=== PATIENT | male | born 1965 | race Caucasian/White ===

== ENCOUNTER → 2020-07-29 | Outpatient (CLI) | payer SELFPAY | LOC: M LABSMTC 13:18 | PROVIDERS: ATTEND Pediatrics | DX: Z20.828 Contact with and (suspected) exposure to other viral communicable diseases (principal) ==

== ENCOUNTER 2021-03-03 02:36 | Inpatient (IN) | payer MEDICARE, MEDICAID ==
[~2021-03-03] VITALS: Ht 180.3 cm; Wt 57.1 kg
[2021-03-03] MEDS ORDERED: CEFD1CAP8 PO (02:51)
[2021-03-03] MEDS ORDERED: ALBU83IN PO (02:51)
[2021-03-03 03:36] LABS: VENOUS BASE EXCESS 0.9 (-2.0-2.0); VENOUS O2 SATURATION 83.1 % (60.0-80.0); VENOUS PARTIAL PRESSURE CO2 43.5 mmHg (38.0-50.0); VENOUS PARTIAL PRESSURE O2 46.7 mmHg (30.0-50.0); VENOUS PH 7.395 UNITS (7.330-7.430); VENOUS TOTAL CO2 27.4 MEQ/L (24.0-28.0)
[2021-03-03 03:38] LABS: HEMATOCRIT 33.2 % (42.0-52.0); MEAN CORPUSCULAR HEMOGLOBIN 29.3 pg (27.0-33.0); MEAN CORPUSCULAR HGB CONC 33.1 g/dl (32.0-36.5); MEAN CORPUSCULAR VOLUME 88.5 fl (80.0-96.0); PLATELET COUNT, AUTOMATED 282 10^3/uL (150-450); RED BLOOD COUNT 3.75 10^6/uL (4.30-6.10); WHITE BLOOD COUNT 23.3 10^3/uL (4.0-10.0)
[2021-03-03 03:57] LABS: DOHLE BODIES 1+; LYMPHOCYTES 3 % (16-44); METAMYELOCYTES 2 % (0-0); MONOCYTES 1 % (0-5); NEUTROPHILS 87 % (28-66); PLATELET CLUMPS SMALL AMT; PLATELET ESTIMATE NORMAL (NORMAL)
[2021-03-03 04:02] LABS: ALBUMIN 1.1 GM/DL (3.2-5.2); ALT/SGPT 7 U/L (12-78); BILIRUBIN,DIRECT 0.3 MG/DL (0.0-0.2); BILIRUBIN,TOTAL 0.5 MG/DL (0.2-1.0); BLOOD UREA NITROGEN 28 MG/DL (7-18); CALCIUM LEVEL 7.3 MG/DL (8.5-10.1); CARBON DIOXIDE LEVEL 25 MEQ/L (21-32); CHLORIDE LEVEL 103 MEQ/L (98-107); CK-MB VALUE MASS 2.8 NG/ML (<3.6); CPK CREATINE PHOSPHOKINASE 91 U/L (39-308); GLOMERULAR FILTRATION RATE > 60.0 (>56); GLUCOSE, FASTING 113 MG/DL (70-100); MB/CK RELATIVE INDEX 3.08 (< OR =4); NT-PRO BNP 895 PG/ML (<125); POTASSIUM SERUM 3.7 MEQ/L (3.5-5.1); SODIUM LEVEL 137 MEQ/L (136-145); TOTAL PROTEIN 5.8 GM/DL (6.4-8.2); TROPONIN I < 0.02 NG/ML (< 0.10)
[2021-03-03] MEDS: COMBIVENT RESPIMAT 100-20MCG INHALER 4GM INH SCH ×3 (04:14→04:59)
[2021-03-03] MEDS ORDERED: ISOVUE-370 76% 100ML VIAL As Ordered ONE (04:19)
--- NOTE | 2021-03-03 05:12 | REPVR ---
PROCEDURE INFORMATION: Exam: XR Chest Exam date and time: 03/03/2021 4:15 AM Age: 55 years old Clinical indication: Cough and dyspnea; Additional info: Dyspnea/cough TECHNIQUE: Imaging protocol: XR of the chest. Views: 1 view. COMPARISON: No relevant prior studies available. FINDINGS: Lungs: The lungs are hyperexpanded. There is a large masslike density occupying the upper half of the right lung field measuring at least 16.0 x 11.2 cm with internal lucencies. There is extensive infiltrate in the inferior half of the right lung field. The left lung is clear. Pleural spaces: Unremarkable. No pleural effusion. No pneumothorax. Heart/Mediastinum: Unremarkable. No cardiomegaly. Bones/joints: Unremarkable. IMPRESSION: 1. Large right upper field masslike density with internal lucencies which could represent necrosis or aerated lung tissue in addition to extensive infiltrates in the inferior half of the right lung field. Findings could be secondary to large lung mass with lymphangitic spread of tumor or super infection. Comparison to old studies is needed. If clinically indicated CT of the chest may be obtained for further evaluation. 2. Right-sided chest port with its tip in the distal SVC. Electronically signed by: Asher Cook On 03/03/2021 05:12:01 AM
--- NOTE | 2021-03-03 05:47 | REPVR ---
PROCEDURE INFORMATION: Exam: CTA Chest With Contrast Exam date and time: 03/03/2021 5:11 AM Age: 55 years old Clinical indication: Shortness of breath; Additional info: SOB TECHNIQUE: Imaging protocol: Computed tomographic angiography of the chest with contrast. 3D rendering (Not supervised by radiologist): MIP and/or 3D reconstructed images were created by the technologist. Radiation optimization: All CT scans at this facility use at least one of these dose optimization techniques: automated exposure control; mA and/or kV adjustment per patient size (includes targeted exams where dose is matched to clinical indication); or iterative reconstruction. Contrast material: ISOVUE 370; Contrast volume: 75 ml; Contrast route: INTRAVENOUS (IV); COMPARISON: CR PORTABLE CHEST X-RAY 03/03/2021 4:02 AM FINDINGS: Tubes, catheters and devices: Right-sided chest port seen with its tip at the cavoatrial junction. Pulmonary arteries: Normal. No pulmonary emboli. Aorta: The thoracic aorta is normal in caliber with no evidence of dissection. Thyroid: The thyroid gland is heterogeneous with no definite focal lesion. Lungs: There is severe left lung emphysematous lung changes. There is left upper lobe scar like mass measuring 3.8 x 2.5 centimetres best seen on coronal image 49 series 403. Two smaller scar like densities seen in the medial left lower lung zone 1 measuring 1.3 x 0.9 cm in the other 1.0 x 0.3 cm on coronal images 14 and 16. There is a large poorly defined consolidation/mass occupying the entire right upper lung field measuring at least 16.3 x 13.3 x 17.4 centimetres with multiple large lucencies with air-fluid level which could represent tissue necrosis or intraparenchymal abscesses with the possibility of fistulous communication to the bronchial tree. Extensive consolidation and infiltrate with coarse irregular septal thickening and poorly defined lung parenchyma could be secondary to infectious infiltrate or lymphangitic spread of tumor. Some aerated lung is seen in the right middle lobe where few scattered irregular nodules are seen. Pleural spaces: Unremarkable. No pneumothorax. No pleural effusion. Heart: There is a small to moderate pericardial effusion along the inferior aspect of the heart measuring up to 1.2 cm in thickness. Lymph nodes: There are multiple prominent lymph nodes in the AP window, pretracheal and precarinal , infra carinal and right hilar region. Gallbladder and bile ducts: The patient is status post cholecystectomy. Bones/joints: Unremarkable. No acute fracture. Soft tissues: Unremarkable. IMPRESSION: 1. No CT evidence of pulmonary embolism or right heart strain. 2. Extensive right lung disease as described above most likely representing a large poorly defined mass occupying the upper half of the right lung field with internal necrosis and or abscesses with the possibilities of fistulous communication to the bronchial tree in addition to extensive consolidations infiltrate and irregular septal thickening in the inferior half of the right lung field which could represent superimposed infection with consolidations and or lymphangitic spread of tumor. 3. Mediastinal adenopathy. 4. Small to moderate pericardial effusion. 5. Right-sided chest port with its tip at the cavoatrial junction. Electronically signed by: Asher Cook On 03/03/2021 05:47:09 AM
[2021-03-03] MEDS ORDERED: PIPERACILLIN/TAZOBACTAM SOD 3.375 GM in D5W MINI-BAG PLUS 50 ML IV ONE (06:20)
[2021-03-03] MEDS ORDERED: NS 1,000 ML IV ONE (06:30)
[2021-03-03] MEDS ORDERED: MOM 30ML SUSPENSION UDC PO PRN (09:00)
[2021-03-03] MEDS ORDERED: MAALOX 30 ML SUSP *UDC PO PRN (09:00)
[2021-03-03] MEDS ORDERED: VANCOMYCIN HCL 1,000 MG in IV FLUID PLACE HOLDER 1 EA IV SCH (11:45)
[2021-03-03 11:54] VITALS: BP 111/67
[2021-03-03] MEDS: FUROSEMIDE 40MG/4ML VIAL (J1940) IV SCH ×2 (12:01→17:13)
[2021-03-03] MEDS: ENOXAPARIN 40MG/0.4ML SYRINGE (J1650 PER 10MG) SC SCH (12:02)
[2021-03-03] MEDS ORDERED: SLF 3 ML SYR IV PRN (12:35)
[2021-03-03] MEDS ORDERED: PIPERACILLIN/TAZOBACTAM SOD 4.5 GM in D5W MINI-BAG PLUS 50 ML IV SCH (13:00)
[2021-03-03] MEDS: SLF 3 ML SYR IV SCH ×2 (14:20→21:20)
[2021-03-03] MEDS: VANCOMYCIN HCL 750 MG, VIAL MATE ADAPTER 1 EACH in NS 250 ML IV SCH (14:20)
[2021-03-03] MEDS ORDERED: VANCOMYCIN HCL 500 MG in D5W MINI-BAG PLUS 100 ML IV ONE (15:00)
[2021-03-03] MEDS: IPRATROPIUM 0.5MG/ALBUTEROL 2.5MG INH SOL UD 3ML (DUONEB) NEB SCH ×2 (15:18→21:13)
[2021-03-03 16:00] VITALS: BP 111/60
[2021-03-03] MEDS: PIPERACILLIN/TAZOBACTAM SOD 4.5 GM in D5W MINI-BAG PLUS 50 ML IV SCH ×2 (17:14→21:21)
--- NOTE | 2021-03-03 19:48 | ECHO ---
ECHOCARDIOGRAM DATE OF PROCEDURE: 03/03/2021 Age: 55 Gender: Male Height: 180 cm Weight: 54 kg REFERRING PHYSICIAN: Dr. Nagy INDICATION: Dyspnea MEASUREMENTS: IVS 1.1 cm LV 3.8 cm LVPW 0.9 cm LA 2.7 cm Aorta 3.3 cm IVC 2.2 cm DOPPLER MEASUREMENT Mitral E wave velocity 85 Mitral A wave 75 FINDINGS: This study is of acceptable technical quality even though neither apical, parasternal, nor subcostal views were completely excellent. Underlying sinus rhythm. Left ventricle is normal size and has normal systolic function, I estimate overall EF in the neighborhood of 65% to 70%. Right ventricle is also of normal size and systolic function. Both atria appear normal. Aortic, mitral, tricuspid, and pulmonic valves were all reasonably well seen and appear normal. Small noncompressive pericardial effusion is noted. Inferior vena cava is dilated, but it does collapse with inspiration indicative of mildly elevated central venous pressure. Aortic root is normal. Aortic arch was not seen. Abdominal aorta grossly appears normal. Doppler interrogation of the aortic valve reveals no significant stenosis or insufficiency. The same applies to mitral and pulmonic valves. Mild tricuspid insufficiency is seen. Calculated pulmonary artery pressure is in the 40s corresponding to moderate pulmonary hypertension. Evaluation of diastolic function is inconclusive because tissue Doppler imaging of the mitral annulus was not performed, but mitral inflow pattern has normal pattern. CONCLUSIONS: 1. Study is of fair technical quality, underlying sinus rhythm. 2. Normal LV size with preserved LV systolic function and probably also normal diastolic function. 3. No significant valvular disease. 4. Mildly elevated central venous pressure and likely moderate pulmonary hypertension. 5. Small noncompressive pericardial effusion.
[2021-03-03 20:24] VITALS: BP 100/63
--- NOTE | 2021-03-03 21:01 | HPEPDOC ---
[facility] Medical History & Physical Date of Admission Mar 03, 2021 Date of Service: Mar 03, 2021 Attending Physician: MARTI MCPHERSON MD History and Physical CHIEF COMPLAINT: Cough and right-sided back pain HISTORY OF PRESENT ILLNESS: Patient is a 55-year-old male with past medical history of lung cancer, and COPD who presents with shortness of breath, cough and right back pain. The patient is a poor historian and unintelligible speech at times. He is able to express that he has had cough for the past week without any productive sputum. He states that he has been trying to cough something up but cannot. He reports that his right-sided back pain is skilled at a 5 out of 10. He describes it as a sore aching pain that is alleviated by a medication of 500 mg. The patient states that he was seen in [place], [place] for his lung cancer, where states that he was told that his lung cancer was in remission. He reports that he has had both radiation and chemotherapy for this. He had a report from his chemotherapy therapy even though he does not receive at this time. Chest radiograph and CT angiogram were done in the ED, which both showed significant signs of mass-like densities. CT angiogram did not show signs of pulmonary embolism, however, he did show significant emphysema of the long and the possibility of intraparenchymal abscesses with the possibility of fistulous communication to the bronchial tree. PAST MEDICAL HISTORY: COPD History of lung cancer. History of bladder cancer. PSH: none SOCIAL HISTORY: Patient lives alone at home. He states that his neighbor checks on him often. He reports that he stopped smoking 2 weeks ago. Reports smoking history of 2 PPD of 40 years, denies alcohol. Denies illicit drug use. He has a patch while at home and that is being taken care of by his neighbor. The patient reports that he would like his good friend, Jing Fernandez to be contacted for any healthcare decision-making at [phone], although it is unclear whether she is a legal healthcare proxy. FAMILY HISTORY: ALLERGIES: Please see below. REVIEW OF SYSTEMS: CONSTITUTIONAL: Denies fevers, chills, night sweats HEENT:. Denies vision changes, denies rhinorrhea. Reports cough as reported in HPI. CARDIOVASCULAR:. Denies heart palpitations, chest pains, chest pressure. RESPIRATORY: Reports shortness of breath. GASTROINTESTINAL: Denies nausea, vomiting, diarrhea, constipation. GENITOURINARY:. Denies dysuria, reports that he had not urinated for the past couple days and urinated a lot today. SKIN: Denies any new skin rashes or lesions. NEUROLOGICAL: Denies any numbness or paresthesias. PSYCHIATRIC: Denies emotional lability, and mood disorders at this time ENDOCRINE: Denies polydipsia, polyuria, polyphagia. HEMATOLOGIC/LYMPHATIC: Denies easily bleeding or bruising. HOME MEDICATIONS: Please see below. PHYSICAL EXAMINATION: VITAL SIGNS: Temperature 98.2, pulse 89, respiratory rate 22, blood pressure 111/60, pulse oximetry 94% on 3L NC. GENERAL APPEARANCE: Patient appears cachectic, with severe kyphosis HEENT: No conjunctival or lids normal. CARDIOVASCULAR: Distant heart sounds due to body habitus. LUNGS: Poor pulmonary air movement. Dullness to percussion of the right side. ABDOMEN: Soft, nontender, nondistended, bowel sounds positive. EXTREMITIES: +2 bilateral pitting edema. NEUROLOGICAL: Muscular tone is good, considering cachectic appearance. PSYCHIATRIC: Affect full and open. LABORATORY DATA: See below. IMAGING: CXR: 03/03/2021 1. Large right upper field masslike density with internal lucencies which could represent necrosis or aerated lung tissue in addition to extensive infiltrates in the inferior half of the right lung field. Findings could be secondary to large lung mass with lymphangitic spread of tumor or super infection. Comparison to old studies is needed. If clinically indicated CT of the chest may be obtained for further evaluation. 2. Right-sided chest port with its tip in the distal SVC. CT angiogram: 03/03/[address] evidence of pulmonary embolism or right heart strain. 2. Extensive right lung disease as described above most likely representing a large poorly defined mass occupying the upper half of the right lung field with internal necrosis and or abscesses with the possibilities of fistulous communication to the bronchial tree in addition to extensive consolidations infiltrate and irregular septal thickening in the inferior half of the right lung field which could represent superimposed infection with consolidations and or lymphangitic spread of tumor. 3. Mediastinal adenopathy. 4. Small to moderate pericardial effusion. 5. Right-sided chest port with its tip at the cavoatrial junction. MICROBIOLOGY: Please see below. ASSESSMENT: Patient is a 85-year-old male with a past medical history of bladder cancer and lung cancer who presents with shortness of breath, cough, right-sided neck pain. He has significant abnormalities present on CT concerning for infection at this time. PLAN: #Dyspnea, multifactorial. CHF. Patient does not have echocardiogram on file. He likely is in decompensated heart failure. Echocardiogram ordered. Lasix 40 mg twice a day ordered. Monitor I's and O's. Monitor daily weights COPD exacerbation/pneumonia. Start Zosyn and vancomycin. Pro-calcitonin and lactic acid ordered. Leukocytosis with metamyelocytosis present. Administer DuoNeb treatment. Encourage incentive spirometry and Acapella. O2 therapy should be targeted to oxygen saturation to be kept above 90%. Rule out PE. CT angiogram done without any evidence of pulmonary embolism. History of lung cancer. #Underweight, BMI of 18.1 kg/m patient has been placed on COPD diet. Nutrition has been consulted Complicates care. DVT prophylaxis: Lovenox 40 mg once a day. Attending Attestation: I performed a history and physical examination of the patient. I have discussed in detail with the resident the findings and plan of treatment as documented by the resident. I agree with their findings and treatment plan. Patient does have a history of extensive lung cancer, treated at [facility], stage III possibly stage IV. Further information is pending to guide treatment plan. Prognosis is guarded. I will continue to follow the patient during this hospital stay. Vital Signs Vital Signs Date Time Temp Pulse Resp B/P (MAP) Pulse Ox O2 Delivery O2 Flow Rate FiO2 03/03/21 16:00 98.7 89 22 111/60 (77) 94 Nasal Cannula 3.0 Laboratory Data Labs 24H Laboratory Tests 2 03/03/21 03:02: Neutrophils (%) (Auto) , Nucleated Red Blood Cells % (auto) 0.0, Neutrophils 87H, Band Neutrophils 7, Lymphocytes (Manual) 3L, Monocytes (Manual) 1, Metamyelocytes 2H, Dohle Bodies 1+, Platelet Estimate NORMAL, Clumped Platelets SMALL AMT, Blood Gas Bicarbonate Standard 25.0, Venous Blood pH 7.395, Venous Blood Partial Pressure CO2 43.5, Venous Blood Partial Pressure O2 46.7, Venous Blood Total Carbon Dioxide 27.4, Venous Blood HCO3 26.0, Venous Blood Oxygen Saturation 83.1H, Venous Blood Base Excess 0.9, Anion Gap 9, Glomerular Filtration Rate > 60.0, Calcium Level 7.3L, Total Bilirubin 0.5, Direct Bilirubin 0.3H, Aspartate Amino Transf (AST/SGOT) 17, Alanine Aminotransferase (ALT/SGPT) 7L, Alkaline Phosphatase 75, Total Creatine Kinase 91, Creatine Kinase MB 2.8, Creatine Kinase MB Relative Index 3.08, Troponin I < 0.02, SJ-Gic-K-Type Natriuretic Peptide 895H, Total Protein 5.8L, Albumin 1.1L, Albumin/Globulin Ratio 0.2 03/03/21 04:55: POC pH (Misc Panel) 7.452H, POC Base Excess (Misc Panel) 1.0, POC Saturated Percent O2 (Misc) 96, POC pO2 (Misc Panel) 77.0L, POC pCO2 (Misc Panel) 35.6, POC HCO3 (Misc Panel) 24.8, POC Total CO2 (Misc Panel) 26.0 03/03/21 10:48: Lactic Acid Level 3.6*H, Procalcitonin 14.93 03/03/21 12:07: Methicillin-Resist S.aureus DNA PCR DETECTEDA 03/03/21 12:26: Urine Color YELLOW, Urine Appearance HAZY, Urine pH 5.0, Urine Specific [place] 1.034, Urine Protein 1+H, Urine Glucose (UA) NEGATIVE, Urine Ketones NEGATIVE, Urine Blood 1+H, Urine Nitrite NEGATIVE, Urine Bilirubin NEGATIVE, Urine Urobilinogen 2.0H, Urine Leukocyte Esterase NEGATIVE, Urine WBC (Auto) 3, Urine RBC (Auto) 4H, Urine Hyaline Casts (Auto) 0, Urine Bacteria (Auto) NEGATIVE, Urine Squamous Epithelial Cells 2, Urine Mucus (Auto) SMALL, Urine Sperm (Auto) 03/03/21 15:15: Lactic Acid Followup at 4 Hours 2.9*H CBC/BMP Laboratory Tests 03/03/21 03:02 Microbiology Microbiology 03/03/21 Gram Stain, Received Pending 03/03/21 Sputum Culture, Received Pending 03/03/21 Blood Culture, Received Pending 03/03/21 Blood Culture, Received Pending 03/03/21 Respiratory Virus Panel (PCR) (TED) - Final, Complete Home Medications Scheduled Cefdinir (Cefdinir) 300 Mg Capsule, 300 MG PO BID Scheduled PRN Albuterol Sulf (Albuterol Sulfate) 2.5 Mg/3 Ml Vial.neb, 1 VIAL PO Q4H PRN for SHORTNESS OF BREATH Allergies Coded Allergies: acetaminophen (Verified Adverse Reaction, Intermediate, GAS CHEST PAIN, 03/03/21) codeine (Verified Adverse Reaction, Intermediate, GAS CHEST PAIN, 03/03/21) A-FIB/CHADSVASC A-FIB History Current/History of A-Fib/PAF?: No Huseyin Nagy DO Mar 03, 2021 21:01 MARTI MCPHERSON MD Mar 04, 2021 06:50
[2021-03-04] VITALS (8 sets, daily range): BP systolic 92–128; BP diastolic 50–67
[2021-03-04] MEDS: IPRATROPIUM 0.5MG/ALBUTEROL 2.5MG INH SOL UD 3ML (DUONEB) NEB SCH ×7 (00:42→23:59)
[2021-03-04] MEDS: VANCOMYCIN HCL 750 MG, VIAL MATE ADAPTER 1 EACH in NS 250 ML IV SCH (02:23)
[2021-03-04] MEDS: SLF 3 ML SYR IV SCH ×3 (03:58→21:08)
[2021-03-04] MEDS: PIPERACILLIN/TAZOBACTAM SOD 4.5 GM in D5W MINI-BAG PLUS 50 ML IV SCH ×4 (03:58→21:08)
--- NOTE | 2021-03-04 05:14 | ECGEPIP ---
[facility] - ED Test Date: 2021-03-03 Pat Name: ABEBE DE JESUS Department: Room: - Gender: Male Finance Executive: SOBEIDA : 1965 Requested By: IRAIDA Marquez Order Number: [id number] Reading MD: Gualberto Zapien Measurements Intervals [place]ley Rate: 90 P: 82 LA: 132 QRS: 57 QRSD: 92 T: 78 QT: 372 QTc: 455 Interpretive Statements SINUS ARRHYTHMIA Baseline artifact Comparison tracing not on file Electronically Signed on 03-04-2021 5:14:23 EDT by Gualberto Zapien
[2021-03-04 05:51] LABS: HEMATOCRIT 30.4 % (42.0-52.0); HEMOGLOBIN 10.2 g/dl (13.5-17.5); MEAN CORPUSCULAR HEMOGLOBIN 29.9 pg (27.0-33.0); MEAN CORPUSCULAR HGB CONC 33.6 g/dl (32.0-36.5); MEAN CORPUSCULAR VOLUME 89.1 fl (80.0-96.0); PLATELET COUNT, AUTOMATED 225 10^3/uL (150-450); RED BLOOD COUNT 3.41 10^6/uL (4.30-6.10)
[2021-03-04 06:23] LABS: ALT/SGPT 10 U/L (12-78); BILIRUBIN,TOTAL 0.3 MG/DL (0.2-1.0); BLOOD UREA NITROGEN 33 MG/DL (7-18); CALCIUM LEVEL 7.8 MG/DL (8.5-10.1); CARBON DIOXIDE LEVEL 32 MEQ/L (21-32); CHLORIDE LEVEL 103 MEQ/L (98-107); CREATININE FOR GFR 0.61 MG/DL (0.70-1.30); GLOMERULAR FILTRATION RATE > 60.0 (>56); GLUCOSE, FASTING 99 MG/DL (70-100); POTASSIUM SERUM 3.7 MEQ/L (3.5-5.1); SODIUM LEVEL 139 MEQ/L (136-145); TOTAL PROTEIN 5.3 GM/DL (6.4-8.2)
[2021-03-04 06:25] LABS: MONOCYTES 1 % (0-5); NEUTROPHILS 92 % (28-66); PLATELET ESTIMATE NORMAL (NORMAL)
[2021-03-04 06:27] LABS: DOHLE BODIES 1+
[2021-03-04] MEDS: FUROSEMIDE 40MG/4ML VIAL (J1940) IV SCH ×2 (09:10→17:34)
[2021-03-04] MEDS: ENOXAPARIN 40MG/0.4ML SYRINGE (J1650 PER 10MG) SC SCH (09:11)
--- NOTE | 2021-03-04 14:39 | IPNPDOC ---
Date Seen The patient was seen on 03/04/21. Progress Note SUBJECTIVE: Patient is on hospital day 2. Patient and nursing staff report no overnight events. Patient denies fevers, chills, night sweats overnight. Patient reports that although he has decreased appetite. He was able to tolerate his breakfast okay. Patient reports that he had a few spoons of cereal, orange juice, and about 75% of his muffin. He reports that he is able to cough up a light-brown colored sputum today. He also states that he feels better today. Nursing staff reports that he has been feeling quite somnolent and he continues to do so today. He takes frequent naps. OBJECTIVE PHYSICAL EXAMINATION: VITAL SIGNS: Please see below. GENERAL: Patient is sitting upright without back support in his bed with his legs off the edge of the bed. HEENT: No conjunctival erythema, no scleral icterus, lids normal. Patient wears eyeglasses. CARDIOVASCULAR: Distant heart sounds due to body habitus, normal S1, S2. RESPIRATORY: Moderate diffuse rhonchi appreciated, patient continues to have a cough and is moving considerably more air than yesterday. ABDOMINAL:, Soft, nontender, nondistended, bowel sounds present. EXTREMITIES: +1 pitting edema from feet to the patella bilaterally, decreased from yesterday. NEUROLOGICAL: Good tone, patient able to sit upright for cachectic body habitus. PSYCHOLOGICAL: Alert and oriented 3, cooperative on examination. LABORATORY DATA, IMAGING STUDIES, MICROBIOLOGY: Please see below. Echocardiogram: 03/03/2021 1. Study is of fair technical quality, underlying sinus rhythm. 2. Normal LV size with preserved LV systolic function and probably also normal diastolic function. 3. No significant valvular disease. 4. Mildly elevated central venous pressure and likely moderate pulmonary hypertension. 5. Small noncompressive pericardial effusion. ASSESSMENT AND PLAN: This is a 55-year-old male with past medical history of lung carcinoma and COPD who presented to the hospital secondary to cough, and right-sided back pain. #Dyspnea, multifactorial. CHF. Echocardiogram done today showed moderate pulmonary hypertension. Ejection fraction was 65-70%. Therefore, the bilateral lower leg edema is likely secondary to pulmonary hypertension resulting from increased intrathoracic pressure. Continue Lasix 40 mg twice a day. Monitor I's and O's. Monitor daily weights COPD exacerbation/pneumonia. Continue Zosyn and vancomycin. Patient's Procalcitonin yesterday was 14.93. Patient's lactic acid decreased from 3.6 and is down to 2.8 today. Repeat Procalcitonin has been ordered. Atypical pneumonia. Tests have been ordered for: Chlamydia, Legionella, and mycoplasma. Leukocytosis, continues to increase. And with metamyelocytosis present. Continued to administer DuoNeb treatment. Encourage incentive spirometry and Acapella. O2 therapy should be targeted to oxygen saturation to be kept above 90%. Rule out PE. CT angiogram done without any evidence of pulmonary embolism. History of lung cancer. #Pericardial effusion. Pericardial effusion is noncompressive and small at this time. No intervention at this time as this effusion is likely secondary to patient's history of lung cancer. #Underweight, BMI of 18.1 kg/m Complicates care. Likely causing patient's fatigue, although patient has multiple other comorbidities as listed above. patient has been placed on COPD diet. Nutrition has been consulted. Ensure has been ordered to incorporate into patient's diet. DVT prophylaxis ordered: Lovenox 40 mg daily DISPOSITION: Discharge not considered since pt is possibly on the route to sepsis without intravenous antibiotics. VS, I&O, 24H, [facility] Vital Signs/I&O Vital Signs Date Time Temp Pulse Resp B/P (MAP) Pulse Ox O2 Delivery O2 Flow Rate FiO2 03/04/21 12:00 100.4 98 18 92/54 (67) 93 Room Air 03/04/21 08:00 3.0 I&O- Last 24 Hours up to 6 AM 03/04/21 06:00 Intake Total 2600 ml Output Total 1875 ml Balance 725 ml Laboratory Data 24H LABS Laboratory Tests 2 03/03/21 15:15: Lactic Acid Followup at 4 Hours 2.9*H 03/04/21 05:19: Neutrophils (%) (Auto) , Nucleated Red Blood Cells % (auto) 0.0, Neutrophils 92H, Band Neutrophils 7, Monocytes (Manual) 1, Red Blood Cell Morphology NORMAL, Dohle Bodies 1+, Platelet Estimate NORMAL, Anion Gap 4L, Glomerular Filtration Rate > 60.0, Calcium Level 7.8L, Total Bilirubin 0.3, Aspartate Amino Transf (AST/SGOT) 18, Alanine Aminotransferase (ALT/SGPT) 10L, Alkaline Phosphatase 79, Total Protein 5.3L, Albumin 1.0L, Albumin/Globulin Ratio 0.2 03/04/21 10:39: Lactic Acid Level 2.8*H 03/04/21 12:55: Vancomycin Level Trough 9.6L CBC/BMP Laboratory Tests 03/04/21 05:19 Microbiology Microbiology 03/03/21 Gram Stain - Final, Resulted 03/03/21 Sputum Culture, Resulted Pending 03/03/21 Blood Culture - Preliminary, Resulted No growth after 24 hours . All specim... 03/03/21 Blood Culture - Preliminary, Resulted No growth after 24 hours . All specim... 03/03/21 Respiratory Virus Panel (PCR) (TED) - Final, Complete GME ATTESTATION GME ATTESTATION My faculty preceptor for this patient encounter was physically present during the encounter and was fully available. All aspects of the patient interview, examination, medical decision making process, and medical care plan development were reviewed and approved by the faculty preceptor. The faculty preceptor is aware and concurs with the plan as stated in the body of this note and will attest to such by his/her cosignature. ATTENDING NOTE Attending Attestation: Patient independently seen and examined. I have discussed in detail with the resident the findings and plan of treatment as documented by the resident. I a gree with their findings and treatment plan. I will continue to follow the patient during this hospital stay. GME ATTESTATION GME ATTESTATION My faculty preceptor for this patient encounter was physically present during the encounter and was fully available. All aspects of the patient interview, examination, medical decision making process, and medical care plan development were reviewed and approved by the faculty preceptor. The faculty preceptor is aware and concurs with the plan as stated in the body of this note and will attest to such by his/her cosignature. ATTENDING NOTE Attending Attestation: Patient independently seen and examined. I have discussed in detail with the resident the findings and plan of treatment as documented by the resident. I agree with their findings and treatment plan. Patient with guarded prognosis g iven his history of lung cancer, cachectic and respirtory distress. I will continue to follow the patient during this hospital stay. Huseyin Nagy DO Mar 04, 2021 14:23 MARTI MCPHERSON MD Mar 05, 2021 06:38
[2021-03-04] MEDS ORDERED: SODIUM CHLORIDE 0.9% INJ 10 ML SYR IV PRN (14:45)
[2021-03-04] MEDS: VANCOMYCIN HCL 1,000 MG, VIAL MATE ADAPTER 1 EACH in NS 250 ML IV SCH (15:04)
[2021-03-04] MEDS ORDERED: BENZONATATE 100 MG CAP PO PRN (15:40)
[2021-03-04] MEDS: guaiFENesin 200 MG TAB PO PRN (17:41)
[2021-03-05] MEDS: VANCOMYCIN HCL 1,000 MG, VIAL MATE ADAPTER 1 EACH in NS 250 ML IV SCH ×2 (02:16→14:16)
[2021-03-05] MEDS: IPRATROPIUM 0.5MG/ALBUTEROL 2.5MG INH SOL UD 3ML (DUONEB) NEB SCH ×6 (04:14→23:24)
[2021-03-05] MEDS: SLF 3 ML SYR IV SCH ×3 (05:33→21:35)
[2021-03-05] MEDS: PIPERACILLIN/TAZOBACTAM SOD 4.5 GM in D5W MINI-BAG PLUS 50 ML IV SCH ×2 (05:33→09:38)
[2021-03-05 06:00] VITALS: BP 106/62
[2021-03-05 06:42] LABS: HEMATOCRIT 30.6 % (42.0-52.0); HEMOGLOBIN 10.3 g/dl (13.5-17.5); MEAN CORPUSCULAR HEMOGLOBIN 29.4 pg (27.0-33.0); MEAN CORPUSCULAR HGB CONC 33.7 g/dl (32.0-36.5); MEAN CORPUSCULAR VOLUME 87.4 fl (80.0-96.0); PLATELET COUNT, AUTOMATED 166 10^3/uL (150-450); WHITE BLOOD COUNT 19.2 10^3/uL (4.0-10.0)
[2021-03-05 07:08] LABS: ALBUMIN 0.9 GM/DL (3.2-5.2); ALT/SGPT 9 U/L (12-78); BILIRUBIN,TOTAL 0.5 MG/DL (0.2-1.0); BLOOD UREA NITROGEN 29 MG/DL (7-18); CALCIUM LEVEL 7.8 MG/DL (8.5-10.1); CARBON DIOXIDE LEVEL 35 MEQ/L (21-32); CHLORIDE LEVEL 100 MEQ/L (98-107); CREATININE FOR GFR 0.67 MG/DL (0.70-1.30); GLOMERULAR FILTRATION RATE > 60.0 (>56); GLUCOSE, FASTING 107 MG/DL (70-100); POTASSIUM SERUM 3.3 MEQ/L (3.5-5.1); SODIUM LEVEL 138 MEQ/L (136-145); TOTAL PROTEIN 5.9 GM/DL (6.4-8.2)
[2021-03-05 08:17] LABS: ATYPICAL LYMPH 1 % (0-5); LYMPHOCYTES 1 % (16-44); METAMYELOCYTES 1 % (0-0); MONOCYTES 1 % (0-5); NEUTROPHILS 96 % (28-66); PLATELET ESTIMATE NORMAL (NORMAL)
[2021-03-05 08:18] LABS: DOHLE BODIES 1+
[2021-03-05 08:19] LABS: ANISOCYTOSIS 1+
[2021-03-05] MEDS ORDERED: POTASSIUM CHLORIDE 10 MEQ SR TABLET PO ONE (09:00)
[2021-03-05] MEDS: guaiFENesin 200 MG TAB PO PRN (09:39)
[2021-03-05] MEDS: ENOXAPARIN 40MG/0.4ML SYRINGE (J1650 PER 10MG) SC SCH (09:39)
[2021-03-05] MEDS: FUROSEMIDE 40MG/4ML VIAL (J1940) IV SCH ×2 (09:39→16:51)
[2021-03-05] MEDS ORDERED: MAG SULF 1GM/100ML (MAG RUN) 1 GM in IV 1 EA IV ONE (12:00)
[2021-03-05] MEDS: LevoFLOXacin 750 MG TABLET PO SCH (12:33)
[2021-03-05 14:41] VITALS: BP 96/61
[2021-03-05 16:50] VITALS: BP 97/62
--- NOTE | 2021-03-05 18:15 | IPNPDOC ---
Date Seen The patient was seen on 03/05/21. Progress Note SUBJECTIVE: Patient is on hospital day 3. Patient and nursing staff report no overnight events. Patient denies fevers, chills, night sweats overnight. Patient reports that although he has decreased appetite, he was able to tolerate his breakfast okay. He reports that his appetite is at baseline. Patient reports that he continues to be able to cough up a light brown colored sputum at this time. Nursing staff reports that temperature did rise up to 100.6 yesterday, but did not require cooling blankets. Patient's fever cannot be managed with Tylenol due to acetaminophen allergy. Patient's temperature resolved spontaneously yesterday. OBJECTIVE PHYSICAL EXAMINATION: VITAL SIGNS: Please see below. GENERAL: Patient is sitting upright without back support in his bed with his legs off the edge of the bed, in no acute distress. HEENT: No conjunctival erythema, no scleral icterus, lids normal. Patient wears eyeglasses. CARDIOVASCULAR: Distant heart sounds due to body habitus, normal S1, S2. RESPIRATORY: Moderate diffuse rhonchi appreciated, patient continues to have a cough and is moving considerably more air than yesterday. ABDOMINAL: Soft, nontender, nondistended, bowel sounds present. EXTREMITIES: Decreased +1 pitting edema, went from feet to the patella bilaterally yesterday to feet to mid calf, eye laterally today. NEUROLOGICAL: Good tone, patient able to sit upright, despite cachectic body habitus. PSYCHOLOGICAL: Alert and oriented 3, cooperative on examination. LABORATORY DATA, IMAGING STUDIES, MICROBIOLOGY: Please see below. Echocardiogram: 03/03/2021 1. Study is of fair technical quality, underlying sinus rhythm. 2. Normal LV size with preserved LV systolic function and probably also normal diastolic function. 3. No significant valvular disease. 4. Mildly elevated central venous pressure and likely moderate pulmonary hypertension. 5. Small noncompressive pericardial effusion. ASSESSMENT AND PLAN: This is a 55-year-old male with past medical history of lung carcinoma and COPD who presented to the hospital secondary to cough, and right-sided back pain. #Dyspnea, multifactorial. CHF. Echocardiogram done today showed moderate pulmonary hypertension. Ejection fraction was 65-70%. Therefore, the bilateral lower leg edema is likely secondary to pulmonary hypertension resulting from increased intrathoracic pressure. Continue Lasix 40 mg twice a day, with holding parameters of systolic blood pressure less than 110. Monitor I's and O's. Monitor daily weights COPD exacerbation/pneumonia. Continue vancomycin. Sputum culture resulted showing pseudomonas aeruginosa resistant to Zosyn. Stop Zosyn and start levofloxacin. Patient's Procalcitonin yesterday was 14.93. Repeat Procalcitonin is 3.8, 03/05/2021 AM. Atypical pneumonia. Tests have been ordered for: Chlamydia, Legionella, and mycoplasma. Leukocytosis, decreased to 19.2 from 26 yesterday. Continued to administer DuoNeb treatment. Encourage incentive spirometry and Acapella. O2 therapy should be targeted to oxygen saturation to be kept above 90%. Rule out PE. CT angiogram done without any evidence of pulmonary embolism. History of lung cancer. #Borderline QTc prolongation. Patient has been started on levofloxacin, which is known to prolong QT. Patient is being started back on remote telemetry, due to this. #Hypokalemia with hypomagnesemia IV mag run 1 ordered. 40 mEq potassium ordered for repletion one time Repeat BMP tomorrow morning to reassess potassium repletion state. Repeat magnesium ordered for a.m. to assess for possible repletion of magnesium Hypokalemia also likely secondary to furosemide administration. #Lactic acidosis. This is likely type B lactic acidosis, mixed with some infectious component. Patient has an increased tumor burden, therefore, lactic acid is likely secondary to malignancy. Discontinuing lactic acid trend due to pro-calcitonin, improving on antibiotics. #Pericardial effusion. Pericardial effusion is noncompressive and small at this time. No intervention at this time as this effusion is likely secondary to patient's history of lung cancer. #Underweight, BMI of 18.1 kg/m Complicates care. Likely causing patient's fatigue, although patient has multiple other comorbidities as listed above. patient has been placed on COPD diet. Nutrition has been consulted. Ensure has been ordered to incorporate into patient's diet. DVT prophylaxis ordered: Lovenox 40 mg daily DISPOSITION: Discharge not considered since pt is possibly on the route to sepsis without intravenous antibiotics. VS, I&O, 24H, Fishbone Vital Signs/I&O Vital Signs Date Time Temp Pulse Resp B/P (MAP) Pulse Ox O2 Delivery O2 Flow Rate FiO2 03/05/21 16:50 97/62 (74) 03/05/21 14:41 98.3 88 20 91 Nasal Cannula 3.0 I&O- Last 24 Hours up to 6 AM 03/05/21 06:00 Intake Total 2120 ml Output Total 2850 ml Balance -730 ml Laboratory Data 24H LABS Laboratory Tests 2 03/04/21 19:14: Lactic Acid Followup at 4 Hours 2.5*H 03/05/21 05:48: Neutrophils (%) (Auto) , Nucleated Red Blood Cells % (auto) 0.1H, Neutrophils 96H, Lymphocytes (Manual) 1L, Monocytes (Manual) 1, Metamyelocytes 1H, Atypical Lymphocytes 1, Anisocytosis 1+, Dohle Bodies 1+, Platelet Estimate NORMAL, Anion Gap 3L, Glomerular Filtration Rate > 60.0, Calcium Level 7.8L, Total Bilirubin 0.5#, Aspartate Amino Transf (AST/SGOT) 16, Alanine Aminotransferase (ALT/SGPT) 9L, Alkaline Phosphatase 73, Total Protein 5.9L, Albumin 0.9L, Albumin/Globulin Ratio 0.2, Procalcitonin 3.88 03/05/21 08:34: Lactic Acid Level 3.1*H, Magnesium Level 1.6L 03/05/21 13:01: Lactic Acid Followup at 4 Hours 2.6*H, Vancomycin Level Trough 11.8 CBC/BMP Laboratory Tests 03/05/21 05:48 Microbiology Microbiology 03/04/21 Blood Culture - Preliminary, Resulted No growth after 24 hours . All specim... 03/03/21 Gram Stain - Final, Complete 03/03/21 Sputum Culture - Final, Complete Pseudomonas Aeruginosa 03/03/21 Blood Culture - Preliminary, Resulted No Growth after 48 hours. All Specime... 03/03/21 Blood Culture - Preliminary, Resulted No Growth after 48 hours. All Specime... 03/03/21 Respiratory Virus Panel (PCR) ([facility]) - Final, Complete GME ATTESTATION GME ATTESTATION My faculty preceptor for this patient encounter was physically present during the encounter and was fully available. All aspects of the patient interview, examination, medical decision making process, and medical care plan development were reviewed and approved by the faculty preceptor. The faculty preceptor is aware and concurs with the plan as stated in the body of this note and will attest to such by his/her cosignature. ATTENDING NOTE Attending Attestation: Patient independently seen and examined. I have discussed in detail with the resident the findings and plan of treatment as documented by the resident. I agree with their findings and treatment plan. Guarded prognosis. I will continue to follow the patient during this hospital stay. Huseyin Nagy DO Mar 05, 2021 18:15 MARTI MCPHERSON MD Mar 06, 2021 09:54
[2021-03-05 22:00] VITALS: BP 115/68
[2021-03-06] MEDS: VANCOMYCIN HCL 1,000 MG, VIAL MATE ADAPTER 1 EACH in NS 250 ML IV SCH (02:06)
[2021-03-06] MEDS: IPRATROPIUM 0.5MG/ALBUTEROL 2.5MG INH SOL UD 3ML (DUONEB) NEB SCH ×6 (03:43→23:36)
[2021-03-06] MEDS: LevoFLOXacin 750 MG TABLET PO SCH (05:37)
[2021-03-06] MEDS: SLF 3 ML SYR IV SCH ×3 (05:38→22:03)
[2021-03-06 06:00] VITALS: BP_SYST 82; BP_SYST 87; BP_DIAS 50; BP_DIAS 51
[2021-03-06 06:34] LABS: HEMATOCRIT 30.2 % (42.0-52.0); MEAN CORPUSCULAR HEMOGLOBIN 29.9 pg (27.0-33.0); MEAN CORPUSCULAR HGB CONC 33.1 g/dl (32.0-36.5); MEAN CORPUSCULAR VOLUME 90.1 fl (80.0-96.0); PLATELET COUNT, AUTOMATED 113 10^3/uL (150-450); RED BLOOD COUNT 3.35 10^6/uL (4.30-6.10); WHITE BLOOD COUNT 11.4 10^3/uL (4.0-10.0)
[2021-03-06 06:51] LABS: LYMPHOCYTES 1 % (16-44); MONOCYTES 4 % (0-5); NEUTROPHILS 95 % (28-66); PLATELET ESTIMATE DECREASED (NORMAL)
[2021-03-06 06:52] LABS: POLYCHROMASIA 1+
[2021-03-06 07:02] LABS: ALBUMIN 0.9 GM/DL (3.2-5.2); ALT/SGPT 8 U/L (12-78); BILIRUBIN,TOTAL 0.4 MG/DL (0.2-1.0); BLOOD UREA NITROGEN 27 MG/DL (7-18); CALCIUM LEVEL 7.5 MG/DL (8.5-10.1); CARBON DIOXIDE LEVEL 35 MEQ/L (21-32); CHLORIDE LEVEL 101 MEQ/L (98-107); CREATININE FOR GFR 0.62 MG/DL (0.70-1.30); GLOMERULAR FILTRATION RATE > 60.0 (>56); GLUCOSE, FASTING 122 MG/DL (70-100); MAGNESIUM LEVEL 1.7 MG/DL (1.8-2.4); POTASSIUM SERUM 3.7 MEQ/L (3.5-5.1); SODIUM LEVEL 140 MEQ/L (136-145); TOTAL PROTEIN 5.7 GM/DL (6.4-8.2)
[2021-03-06] MEDS: FUROSEMIDE 40MG/4ML VIAL (J1940) IV SCH ×2 (07:52→17:00)
[2021-03-06 07:55] VITALS: BP 96/52
[2021-03-06] MEDS: ENOXAPARIN 40MG/0.4ML SYRINGE (J1650 PER 10MG) SC SCH (09:18)
[2021-03-06] MEDS ORDERED: ISOVUE-370 76% 100ML VIAL As Ordered ONE (11:24)
[2021-03-06] MEDS ORDERED: MAG SULF 1GM/100ML (MAG RUN) 1 GM in IV 1 EA IV ONE (11:30)
[2021-03-06] MEDS ORDERED: ONDANSETRON 4MG/2ML VIAL IV ONE (12:40)
[2021-03-06 14:00] VITALS: BP 99/64
[2021-03-06] MEDS: VANCOMYCIN HCL 750 MG, VIAL MATE ADAPTER 1 EACH in NS 250 ML IV SCH ×2 (15:07→22:03)
--- NOTE | 2021-03-06 17:08 | IPNPDOC ---
Date Seen The patient was seen on 03/06/21. Progress Note SUBJECTIVE: Patient is on hospital day 4. Patient and nursing staff report no overnight events. Patient denies fevers, chills, night sweats overnight. Patient reports that although he has decreased appetite, he was able to tolerate his breakfast okay. He reports that his appetite is at baseline. Patient reports that he continues to be able to cough up a light brown colored sputum at this time, but also reports that he feels like he is choking on the sputum he is trying to cough up. Patient remained afebrile yesterday. Nursing staff reports that his blood pressures continue to decrease with systolics in the high 80s at times. OBJECTIVE PHYSICAL EXAMINATION: VITAL SIGNS: Please see below. GENERAL: Patient is sitting upright without back support in his bed with his legs off the edge of the bed, in no acute distress. HEENT: No conjunctival erythema, no scleral icterus, lids normal. Patient wears eyeglasses. CARDIOVASCULAR: Distant heart sounds due to body habitus, normal S1, S2. RESPIRATORY: Moderate diffuse rhonchi appreciated, patient continues to have a cough and is moving considerably more air than yesterday. ABDOMINAL: Soft, nontender, nondistended, bowel sounds present. EXTREMITIES: Decreased +1 pitting edema, went from feet to the patella bilaterally yesterday to feet to mid calf, eye laterally today. NEUROLOGICAL: Good tone, patient able to sit upright, despite cachectic body habitus. PSYCHOLOGICAL: Alert and oriented 3, cooperative on examination. LABORATORY DATA, IMAGING STUDIES, MICROBIOLOGY: Please see below. Echocardiogram: 03/03/2021 1. Study is of fair technical quality, underlying sinus rhythm. 2. Normal LV size with preserved LV systolic function and probably also normal diastolic function. 3. No significant valvular disease. 4. Mildly elevated central venous pressure and likely moderate pulmonary hypertension. 5. Small noncompressive pericardial effusion. ASSESSMENT AND PLAN: This is a 55-year-old male with past medical history of lung carcinoma and COPD who presented to the hospital secondary to cough, and right-sided back pain. #Dyspnea, multifactorial. CHF. Echocardiogram done today showed moderate pulmonary hypertension. Ejection fraction was 65-70%. Therefore, the bilateral lower leg edema is likely secondary to pulmonary hypertension resulting from increased intrathoracic pressure. Continue Lasix 40 mg twice a day, with holding parameters of systolic blood pressure less than 110. Monitor I's and O's. Monitor daily weights COPD exacerbation/pneumonia. Continue vancomycin. Sputum culture resulted showing pseudomonas aeruginosa resistant to Zosyn. Patient's Procalcitonin on 03/03/2021 was 14.93. Repeat Procalcitonin was 3.8, 03/05/2021 AM. Atypical pneumonia. Tests have been ordered for: Chlamydia, Legionella, and mycoplasma. Leukocytosis, decreased to 11.4 from 19.2 yesterday. Continued to administer DuoNeb treatment. Encourage incentive spirometry and Acapella. Chest PT ordered as well due to increased secretions. O2 therapy should be targeted to oxygen saturation to be kept above 90%. -Chest CT with contrast ordered due to increased secretions. -Follow-up on chest CT results. Rule out PE. CT angiogram done without any evidence of pulmonary embolism. History of lung cancer. #Borderline QTc prolongation. Patient has been started on levofloxacin, which is known to prolong QT. Patient is being started back on remote telemetry, due to this. #Hypotension secondary to poor oral intake. Patient has evidence of pulmonary hypertension. Therefore, IV hydration should be gentle. Consider 500 mL bolus if patient remains hypotensive during the night. #Vomiting. Patient vomited once. Upon follow-up with patient, he denied feeling nauseous. 2 mg, Zofran IV was ordered due to patient's borderline QT prolongation Abdominal KUB x-ray was ordered, since abdominal and pelvic CT with contrast could not be ordered due to chest CT with contrast had already been done earlier today. Consider getting abdominal and pelvic CT with contrast, if patient remains nauseated, and/or has more vomiting episodes #Thrombocytopenia. Patient's platelets went down from 282 on admission to 113 today. Discontinue Lovenox, teds and sequentials will be used for DVT prophylaxis now, as Lovenox may have induced thrombocytopenia. Hepatitis induced thrombocytopenia antibodies test ordered. Follow-up on results. Continue to monitor CBC, a.m. CBC has been ordered for monitoring. #Hypokalemia with hypomagnesemia IV mag run 1 ordered. Repeat BMP tomorrow morning to reassess potassium repletion state. Repeat magnesium ordered for a.m. to assess for possible repletion of magnesium #Lactic acidosis. This is likely type B lactic acidosis, mixed with some infectious component. Patient has an increased tumor burden, therefore, lactic acid is likely secondary to malignancy. Discontinuing lactic acid trend due to pro-calcitonin, improving on antibiotics. #Pericardial effusion. Pericardial effusion is noncompressive and small at this time. No intervention at this time as this effusion is likely secondary to patient's history of lung cancer. #Underweight, BMI of 18.1 kg/m Complicates care. Likely causing patient's fatigue, although patient has multiple other comorbidities as listed above. patient has been placed on COPD diet. Nutrition has been consulted. Ensure has been ordered to incorporate into patient's diet. DVT prophylaxis ordered: Teds and sequentials DISPOSITION: Discharge not considered since pt is possibly on the route to sepsis without intravenous antibiotics. VS, I&O, 24H, Fishbone Vital Signs/I&O Vital Signs Date Time Temp Pulse Resp B/P (MAP) Pulse Ox O2 Delivery O2 Flow Rate FiO2 03/06/21 14:00 98.4 91 18 99/64 (76) 92 Nasal Cannula 3.0 I&O- Last 24 Hours up to 6 AM 03/06/21 06:00 Intake Total 1960 ml Output Total 1700 ml Balance 260 ml Laboratory Data 24H LABS Laboratory Tests 2 03/06/21 05:56: Neutrophils (%) (Auto) , Nucleated Red Blood Cells % (auto) 0.0, Neutrophils 95H, Lymphocytes (Manual) 1L, Monocytes (Manual) 4, Polychromasia 1+, Platelet Estimate DECREASED, Anion Gap 4L, Glomerular Filtration Rate > 60.0, Calcium Lev el 7.5L, Magnesium Level 1.7L, Total Bilirubin 0.4, Aspartate Amino Transf (AST/SGOT) 15, Alanine Aminotransferase (ALT/SGPT) 8L, Alkaline Phosphatase 66, Total Protein 5.7L, Albumin 0.9L, Albumin/Globulin Ratio 0.2 03/06/21 12:54: Vancomycin Level Trough 10.4 03/06/21 15:50: CBC/BMP Laboratory Tests 03/06/21 05:56 Microbiology Microbiology 03/04/21 Blood Culture - Preliminary, Resulted No Growth after 48 hours. All Specime... 03/03/21 Gram Stain - Final, Complete 03/03/21 Sputum Culture - Final, Complete Pseudomonas Aeruginosa 03/03/21 Blood Culture - Preliminary, Resulted No Growth after 72 hours. All specime... 03/03/21 Blood Culture - Preliminary, Resulted No Growth after 72 hours. All specime... 03/03/21 Respiratory Virus Panel (PCR) ([facility]) - Final, Complete GME ATTESTATION GME ATTESTATION My faculty preceptor for this patient encounter was physically present during the encounter and was fully available. All aspects of the patient interview, examination, medical decision making process, and medical care plan development were reviewed and approved by the faculty preceptor. The faculty preceptor is aware and concurs with the plan as stated in the body of this note and will attest to such by his/her cosignature. ATTENDING NOTE Attending Attestation: Patient independently seen and examined. I have discussed in detail with the resident the findings and plan of treatment as documented by the resident. I agree with their findings and treatment plan. I will continue to follow the patient during this hospital stay. Huseyin Nagy DO Mar 06, 2021 17:08 MARTI MCPHERSON MD Mar 24, 2021 12:07
[2021-03-06 22:00] VITALS: BP 123/67
[2021-03-07] MEDS: IPRATROPIUM 0.5MG/ALBUTEROL 2.5MG INH SOL UD 3ML (DUONEB) NEB SCH ×6 (03:13→23:57)
--- NOTE | 2021-03-07 03:36 | REP ---
INDICATION: nausea, vomiting COMPARISON: None. TECHNIQUE: Supine views of the abdomen and pelvis. FINDINGS: Bowel gas pattern is nonspecific. Contrast outlines the renal collecting system including bladder which demonstrates bilateral diverticula. Evidence for prior cholecystectomy. Skeletal structures are age-appropriate. Visualized lung bases suggest infiltrate at the right lower lobe. IMPRESSION: 1. Nonspecific bowel gas pattern. 2. Contrast within the urinary tract collecting system demonstrating bilateral bladder diverticula. 3. Suspected right lower lobe infiltrate. <Electronically signed by Sukhjinder Zelaya > 03/07/21 [id number]
[2021-03-07 05:57] LABS: HEMATOCRIT 28.5 % (42.0-52.0); HEMOGLOBIN 9.3 g/dl (13.5-17.5); MEAN CORPUSCULAR HEMOGLOBIN 29.9 pg (27.0-33.0); MEAN CORPUSCULAR HGB CONC 32.6 g/dl (32.0-36.5); MEAN CORPUSCULAR VOLUME 91.6 fl (80.0-96.0); PLATELET COUNT, AUTOMATED 101 10^3/uL (150-450); RED BLOOD COUNT 3.11 10^6/uL (4.30-6.10); WHITE BLOOD COUNT 6.2 10^3/uL (4.0-10.0)
[2021-03-07 06:00] VITALS: BP 107/69
[2021-03-07] MEDS: VANCOMYCIN HCL 750 MG, VIAL MATE ADAPTER 1 EACH in NS 250 ML IV SCH ×3 (06:08→22:07)
[2021-03-07] MEDS: SLF 3 ML SYR IV SCH ×3 (06:08→22:00)
[2021-03-07] MEDS: LevoFLOXacin 750 MG TABLET PO SCH (06:08)
[2021-03-07 06:19] LABS: EOSINOPHILS 3 % (0-3); LYMPHOCYTES 2 % (16-44); MONOCYTES 7 % (0-5); NEUTROPHILS 88 % (28-66)
[2021-03-07 06:20] LABS: ANISOCYTOSIS 1+; PLATELET ESTIMATE DECREASED (NORMAL); POLYCHROMASIA 1+
[2021-03-07 06:21] LABS: ALBUMIN 0.8 GM/DL (3.2-5.2); ALT/SGPT 8 U/L (12-78); BILIRUBIN,TOTAL 0.3 MG/DL (0.2-1.0); BLOOD UREA NITROGEN 26 MG/DL (7-18); CALCIUM LEVEL 7.2 MG/DL (8.5-10.1); CARBON DIOXIDE LEVEL 36 MEQ/L (21-32); CHLORIDE LEVEL 101 MEQ/L (98-107); CREATININE FOR GFR 0.53 MG/DL (0.70-1.30); DOHLE BODIES 1+; GLOMERULAR FILTRATION RATE > 60.0 (>56); GLUCOSE, FASTING 145 MG/DL (70-100); MAGNESIUM LEVEL 1.8 MG/DL (1.8-2.4); SODIUM LEVEL 139 MEQ/L (136-145); TOTAL PROTEIN 4.8 GM/DL (6.4-8.2)
--- NOTE | 2021-03-07 06:40 | REP ---
INDICATION: worsening dyspnea COMPARISON: 03/03/2021 TECHNIQUE: Axial contrast enhanced images from the thoracic inlet to the upper abdomen with coronal and sagittal reformations using 75 ml Isovue 370 intravenous contrast material. [address] examination was performed using the following dose reduction techniques: Automated exposure control, adjustment of mA and/or kv according to the patient's size, and use of iterative reconstruction technique. FINDINGS: Advanced COPD/emphysematous changes are again noted and there is considerable areas of consolidation and fluid involving much of the right upper lobe and right lower lobe unchanged from prior examination. New/increased patchy areas of similar smaller consolidations and fluid now noted in the left upper lobe and lingula. IMPRESSION: 1. Advanced COPD/emphysematous changes with significant consolidations and fluid involving the right hemithorax essentially unchanged. 2. New areas of similar but smaller patchy infiltrates and fluid now identified involving the left upper lobe. <Electronically signed by Sukhjinder Zelaya > 03/07/21 0601
[2021-03-07] MEDS: FUROSEMIDE 40MG/4ML VIAL (J1940) IV SCH (09:00)
[2021-03-07] MEDS: guaiFENesin 200 MG TAB PO PRN (09:00)
--- NOTE | 2021-03-07 12:12 | IPNPDOC ---
Date Seen The patient was seen on 03/07/21. Progress Note SUBJECTIVE: Patient is on hospital day 5. Patient and nursing staff report no overnight events. Patient denies fevers, chills, night sweats overnight. Pt reports feeling more short of breath. Patient reports that although he has decreased appetite, he was able to tolerate his breakfast okay. He reports that his appetite is at baseline. Patient reports that he continues to be able to cough up a light brown colored sputum at this time, but also reports that he feels like he is choking on the sputum he is trying to cough up. Pt reports using his Acapella and IS spirometry, but he reports that it is not helping. He now requires 5L NC oxygen therapy right now. Patient remained afebrile yester day. Nursing staff reports that his blood pressures continue to soft, with systolic blood pressure in the high 90s at times. The patient changed his code status to DNR/DNI today with Dr. Mcpherson. OBJECTIVE PHYSICAL EXAMINATION: VITAL SIGNS: Please see below. GENERAL: Patient is sitting upright without back support in his bed with his legs off the edge of the bed, in mild acute distress. HEENT: No conjunctival erythema, no scleral icterus, lids normal. Patient wears eyeglasses. CARDIOVASCULAR: Distant heart sounds due to body habitus, normal S1, S2. RESPIRATORY: Moderate diffuse rhonchi appreciated, patient continues to have a cough and appears to have an increased work of breathing. ABDOMINAL: Soft, nontender, nondistended, bowel sounds present. EXTREMITIES: Decreased +1 pitting edema, went from feet to the patella bilaterally yesterday to feet to ~5 in. above medial malleolus, biaterally today. NEUROLOGICAL: Good tone, patient able to sit upright, despite cachectic body habitus. PSYCHOLOGICAL: Alert and oriented 3, cooperative on examination. LABORATORY DATA, IMAGING STUDIES, MICROBIOLOGY: Please see below. Echocardiogram: 03/03/2021 1. Study is of fair technical quality, underlying sinus rhythm. 2. Normal LV size with preserved LV systolic function and probably also normal diastolic function. 3. No significant valvular disease. 4. Mildly elevated central venous pressure and likely moderate pulmonary hypertension. 5. Small noncompressive pericardial effusion. ASSESSMENT AND PLAN: This is a 55-year-old male with past medical history of lung carcinoma and COPD who presented to the hospital secondary to cough, and right-sided back pain. #Dyspnea, multifactorial. Worsening today, 03/07/2021: Chest x-ray, repeat ordered, troponin repeat ordered, although 03/06/2021 was negative to rule out cardiac etiology, suctioning ordered, to be done by respiratory therapy. CHF. Echocardiogram done 03/03/2021, showed moderate pulmonary hypertension. Ejection fraction was 65-70%. Therefore, the bilateral lower leg edema is likely secondary to pulmonary hypertension resulting from increased intrathoracic pressure. Continue Lasix 40 mg twice a day, with holding parameters of systolic blood pressure less than 110. Monitor I's and O's. Monitor daily weights Repeat BNP ordered due to worsening dyspnea. COPD exacerbation/pneumonia. Continue vancomycin. Sputum culture resulted showing pseudomonas aeruginosa resistant to Zosyn. Patient's Procalcitonin on 03/03/2021 was 14.93. Repeat Procalcitonin was 3.8, 03/05/2021 AM. Repeat procalcitonin ordered today, 03/07/2021. Atypical pneumonia. Tests have been ordered for: Chlamydia, Legionella, and mycoplasma. Leukocytosis, decreased to 11.4 from 19.2 yesterday. Continued to administer DuoNeb treatment. Encourage incentive spirometry and Acapella. Chest PT ordered as well due to increased secretions. O2 therapy should be targeted to oxygen saturation to be kept above 90%. -Chest CT with contrast ordered due to increased secretions. -Follow-up on chest CT results. Rule out PE. CT angiogram done without any evidence of pulmonary embolism. History of lung cancer. #Possible dysphagia. Speech therapy ordered since patient cannot expectorate his secretions, we need an assessment of whether he can appropriately swallow. #Borderline QTc prolongation. Patient has been started on levofloxacin, which is known to prolong QT. Patient is being started back on remote telemetry, due to this. #Hypotension secondary to poor oral intake. Patient has evidence of pulmonary hypertension. Therefore, IV hydration should be gentle. Consider 500 mL bolus if patient remains hypotensive during the night. #Vomiting. Patient vomited once. Upon follow-up with patient, he denied feeling nauseous. 2 mg, Zofran IV was ordered due to patient's borderline QT prolongation Abdominal KUB x-ray was ordered, since abdominal and pelvic CT with contrast could not be ordered due to chest CT with contrast had already been done earlier today. Consider getting abdominal and pelvic CT with contrast, if patient remains nauseated, and/or has more vomiting episodes #Thrombocytopenia. Patient's platelets went down from 282 on admission to 113 today. Discontinue Lovenox, teds and sequentials will be used for DVT prophylaxis now, as Lovenox may have induced thrombocytopenia. Hepatitis induced thrombocytopenia antibodies test ordered. Follow-up on result s. Continue to monitor CBC, a.m. CBC has been ordered for monitoring. #Hypokalemia with hypomagnesemia Magnesium level within normal limits at this time. Repeat BMP tomorrow morning to reassess potassium repletion state. Repeat magnesium ordered for a.m. to assess for possible repletion of magnesium #Lactic acidosis. This is likely type B lactic acidosis, mixed with some infectious component. Patient has an increased tumor burden, therefore, lactic acid is likely secondary to malignancy. Discontinuing lactic acid trend due to pro-calcitonin, improving on antibiotics. #Pericardial effusion. Pericardial effusion is noncompressive and small at this time. No intervention at this time as this effusion is likely secondary to patient's history of lung cancer. #Underweight, BMI of 18.1 kg/m Complicates care. Likely causing patient's fatigue, although patient has multiple other co morbidities as listed above. patient has been placed on COPD diet. Nutrition has been consulted. Ensure has been ordered to incorporate into patient's diet. DVT prophylaxis ordered: Teds and sequentials DISPOSITION: Discharge not considered since pt is possibly on the route to sepsis without intravenous antibiotics. VS, I&O, 24H, Fishbone Vital Signs/I&O Vital Signs Date Time Temp Pulse Resp B/P (MAP) Pulse Ox O2 Delivery O2 Flow Rate FiO2 03/07/21 06:00 98.0 94 18 107/69 (82) 96 Nasal Cannula 3.0 I&O- Last 24 Hours up to 6 AM 03/07/21 06:00 Intake Total 1365 ml Output Total 1900 ml Balance -535 ml Laboratory Data 24H LABS Laboratory Tests 2 03/06/21 12:54: Vancomycin Level Trough 10.4 03/06/21 15:50: Troponin I < 0.02 03/07/21 05:19: Neutrophils (%) (Auto) , Nucleated Red Blood Cells % (auto) 0.0, Neutrophils 88H, Lymphocytes (Manual) 2L, Monocytes (Manual) 7H, Eosinophils (Manual) 3, Polychromasia 1+, Anisocytosis 1+, Dohle Bodies 1+, Platelet Estimate DECREASED, Anion Gap 2L, Glomerular Filtration Rate > 60.0, Calcium Level 7.2L, Magnesium Level 1.8, Total Bilirubin 0.3, Aspartate Amino Transf (AST/SGOT) 11, Alanine Aminotransferase (ALT/SGPT) 8L, Alkaline Phosphatase 65, Total Protein 4.8L, Albumin 0.8L, Albumin/Globulin Ratio 0.2 CBC/BMP Laboratory Tests 03/07/21 05:19 Microbiology Microbiology 03/04/21 Blood Culture - Preliminary, Resulted No Growth after 48 hours. All Specime... 03/03/21 Gram Stain - Final, Complete 03/03/21 Sputum Culture - Final, Complete Pseudomonas Aeruginosa 03/03/21 Blood Culture - Preliminary, Resulted No Growth after 72 hours. All specime... 03/03/21 Blood Culture - Preliminary, Resulted No Growth after 72 hours. All specime... 03/03/21 Respiratory Virus Panel (PCR) ([facility]) - Final, Complete GME ATTESTATION GME ATTESTATION My faculty preceptor for this patient encounter was physically present during the encounter and was fully available. All aspects of the patient interview, examination, medical decision making process, and medical care plan development were reviewed and approved by the faculty preceptor. The faculty preceptor is aware and concurs with the plan as stated in the body of this note and will attest to such by his/her cosignature. ATTENDING NOTE Attending Attestation: Patient independently seen and examined. I have discussed in detail with the resident the findings and plan of treatment as documented by the resident. I agree with their findings and treatment plan. I will continue to follow the patient during this hospital stay. Huseyin Nagy DO Mar 07, 2021 12:12 MARTI MCPHERSON MD Mar 08, 2021 06:28
[2021-03-07 13:53] LABS: NT-PRO BNP 520 PG/ML (<125); TROPONIN I < 0.02 NG/ML (< 0.10); VANCOMYCIN LEVEL TROUGH 13.1 UG/ML (10.0-20.0)
[2021-03-07 14:00] VITALS: BP 90/50
[2021-03-07 14:12] LABS: CHLAMYDIA PNEUMONIAE IgM <1:10 (Neg:<1:10); MYCOPLASMA PNEUMONIAE IgG 260 U/mL (0-99); MYCOPLASMA PNEUMONIAE IgM <770 U/mL (0-769)
[2021-03-07 15:00] VITALS: BP 104/62
[2021-03-07] MEDS: guaiFENesin 200 MG TAB PO SCH ×3 (15:00→22:07)
[2021-03-07 16:00] VITALS: BP 113/65
[2021-03-07] MEDS ORDERED: NS 1,000 ML IV SCH (16:10)
[2021-03-07 19:08] LABS: BODY FLUID CULTURE Not indicated. (.); LEGIONELLA ANTIGEN URINE Negative (Negative); ORGANISM ID Not indicated. (.); SPECIMEN SOURCE Urine (.); URINE STREP PNEUMONIAE ANTIGEN Negative (Negative)
--- NOTE | 2021-03-07 20:09 | REP ---
INDICATION: worsening dyspnea. COMPARISON: Comparison chest x-ray March 03, 2021. Comparison chest CT study March 06, 2021. TECHNIQUE: Two views.. FINDINGS: There is volume loss again noted in the right hemithorax with extensive pulmonary parenchymal consolidation throughout the right lower lobe distribution. There is a homogeneous even more opaque density in the right upper lobe distribution. There is some elevation of the right hilar region. These findings are unchanged. There is patchy consolidation in the left upper lobe. The left lung is hyperinflated. The patchy consolidation in the left upper lobe is new when compared with the March 02, 2021 study. IMPRESSION: Extensive consolidation right upper lobe, volume loss and consolidation right upper lobe, new infiltrate left upper lobe compared with the comparison chest x-ray of March 03, 2021 although the left upper lobe infiltrate is visible on March 06, 2021 CT study.. <Electronically signed by Vinicius Hope > 03/07/212005
[2021-03-07 22:00] VITALS: BP 118/50
[2021-03-08] VITALS (7 sets, daily range): BP systolic 101–139; BP diastolic 54–67
[2021-03-08] MEDS: guaiFENesin 200 MG TAB PO SCH ×6 (01:22→21:36)
[2021-03-08] MEDS: IPRATROPIUM 0.5MG/ALBUTEROL 2.5MG INH SOL UD 3ML (DUONEB) NEB SCH ×6 (03:19→23:21)
--- NOTE | 2021-03-08 03:58 | IPNPDOC ---
Text Note Date of Service The patient was seen on 03/08/21. NOTE Called by nursing staff overnight patient was requiring increased supplemental O2 and having issues handling his own secretions. Respiratory therapy and nursing staff both suctioned him which only helped a small amount. Upon my exam, patient had filled up two blue emesis bags with thick green sputum. Patient states that he felt as though he was having issues coughing everything up. patient denied chest pain. Supplemental o2 at this time 15L high flow nasal canula. At this time 0345 i am initiating transfer to PCU for vapotherm. I am also holding tessalon perles at this time to promote coughing so patient can clear his secretions. I have asked nursing staff and respiratory therapy to continue trying to suction patient. have also instructed patient to try to suction himself when coughing. F/u ABG. VS,Fishbone, I+O VS, Fishbone, I+O Laboratory Tests 03/07/21 05:19 Vital Signs Date Time Temp Pulse Resp B/P (MAP) Pulse Ox O2 Delivery O2 Flow Rate FiO2 03/08/21 03:37 97.7 89 20 110/67 (81) 87 High Flow Cannula 15.0 I&O- Last 24 Hours up to 6 AM 03/08/21 06:00 Intake Total 1975 ml Output Total 1305 ml Balance 670 ml KIARA MULLER Mar 08, 2021 03:58
[2021-03-08 03:59] LABS: ABG BASE EXCESS 7.2 (-2.0-2.0); ABG HCO3 33.3 MEQ/L (22.0-26.0); ABG O2 SATURATION 98.7 % (95.0-99.0); ABG PARTIAL PRESSURE CO2 55.5 mmHg (35.0-45.0); ABG PARTIAL PRESSURE O2 148.4 mmHg (75.0-100.0); ABG STANDARD HCO3 31.1 MEQ/L (22.0-26.0); ABG pH (ARTERIAL) 7.396 UNITS (7.350-7.450)
[2021-03-08 06:14] LABS: HEMATOCRIT 28.3 % (42.0-52.0); HEMOGLOBIN 9.2 g/dl (13.5-17.5); MEAN CORPUSCULAR HEMOGLOBIN 29.7 pg (27.0-33.0); MEAN CORPUSCULAR HGB CONC 32.5 g/dl (32.0-36.5); MEAN CORPUSCULAR VOLUME 91.3 fl (80.0-96.0); WHITE BLOOD COUNT 5.9 10^3/uL (4.0-10.0)
[2021-03-08] MEDS: LevoFLOXacin 750 MG TABLET PO SCH (06:17)
[2021-03-08] MEDS: VANCOMYCIN HCL 750 MG, VIAL MATE ADAPTER 1 EACH in NS 250 ML IV SCH (06:18)
[2021-03-08] MEDS: SLF 3 ML SYR IV SCH ×3 (06:18→21:36)
[2021-03-08 06:37] LABS: ALBUMIN 0.8 GM/DL (3.2-5.2); ALT/SGPT 11 U/L (12-78); BILIRUBIN,TOTAL 0.4 MG/DL (0.2-1.0); BLOOD UREA NITROGEN 24 MG/DL (7-18); CALCIUM LEVEL 7.3 MG/DL (8.5-10.1); CARBON DIOXIDE LEVEL 35 MEQ/L (21-32); CHLORIDE LEVEL 103 MEQ/L (98-107); CREATININE FOR GFR 0.41 MG/DL (0.70-1.30); GLOMERULAR FILTRATION RATE > 60.0 (>56); GLUCOSE, FASTING 85 MG/DL (70-100); MAGNESIUM LEVEL 1.8 MG/DL (1.8-2.4); POTASSIUM SERUM 4.1 MEQ/L (3.5-5.1); SODIUM LEVEL 139 MEQ/L (136-145)
[2021-03-08 06:58] LABS: PLATELET COUNT, AUTOMATED 87 10^3/uL (150-450)
[2021-03-08 07:09] LABS: ATYPICAL LYMPH 1 % (0-5); EOSINOPHILS 1 % (0-3); LYMPHOCYTES 6 % (16-44); MONOCYTES 6 % (0-5); NEUTROPHILS 80 % (28-66)
[2021-03-08 07:14] LABS: PLATELET ESTIMATE NORMAL (NORMAL)
[2021-03-08] MEDS ORDERED: ACETYLCYSTEINE 20% 30 ML VIAL PO SCH (12:35)
[2021-03-08] MEDS ORDERED: ACETYLCYSTEINE 20% 30 ML VIAL PO ONE (12:35)
[2021-03-08] MEDS: ACETYLCYSTEINE 20% 4 ML VIAL (200MG/ML) INH SCH ×2 (13:34→20:07)
[2021-03-08] MEDS: TOBRAMYCIN INHAL 300 MG/5 ML SOLN INH SCH ×2 (13:46→20:25)
--- NOTE | 2021-03-08 16:56 | IPNPDOC ---
Date Seen The patient was seen on 03/08/21. Progress Note SUBJECTIVE: Patient is on hospital day 6. Overnight, pt required 15L via vapotherm since oxygen saturation decreased and patient was upgraded back up to PCU status. Patient denies fevers, chills, night sweats at this time. Pt reports feeling more short of breath. Patient reports that although he has decreased appetite. He was made NPO per speech therapy recommendations yesterday. Patient reports that he continues to cough up a light brown colored sputum at this time, but also reports that he feels like he is choking on the sputum he is trying to cough up. Pt reports using his Acapella and IS spirometry, but he reports that it is not helping. He now requires 15L vapotherm oxygen therapy with oxygen saturation at 86%. Patient remained afebrile yesterday. Nursing staff reports that his blood pressures continue to be soft, with systolic blood pressure in the high 100s now, which is a little better than earlier in the hospital course. The patient changed his code status to DNR/DNI yesterday with Dr. Mcpherson. OBJECTIVE PHYSICAL EXAMINATION: VITAL SIGNS: Please see below. GENERAL: Patient is sitting upright without back support in his bed with his legs off the edge of the bed, in mild acute distress. HEENT: No conjunctival erythema, no scleral icterus, lids normal. CARDIOVASCULAR: Distant heart sounds due to body habitus, normal S1, S2. RESPIRATORY: Moderate diffuse rhonchi appreciated, patient continues to have a cough and appears to have an increased work of breathing with pursing of the lips. ABDOMINAL: Soft, nontender, nondistended, bowel sounds present. EXTREMITIES: Decreased +1 pitting edema, increased back to being pedal to midway up calves bilaterally. NEUROLOGICAL: Good tone, patient able to sit upright, despite cachectic body habitus. PSYCHOLOGICAL: Alert and oriented 3, cooperative on examination. LABORATORY DATA, IMAGING STUDIES, MICROBIOLOGY: Please see below. Echocardiogram: 03/03/2021 1. Study is of fair technical quality, underlying sinus rhythm. 2. Normal LV size with preserved LV systolic function and probably also normal diastolic function. 3. No significant valvular disease. 4. Mildly elevated central venous pressure and likely moderate pulmonary hypertension. 5. Small noncompressive pericardial effusion. ASSESSMENT AND PLAN: This is a 55-year-old male with past medical history of lung carcinoma and COPD who presented to the hospital secondary to cough, and right-sided back pain. #Dyspnea, multifactorial. Worsening today, 03/08/2021: Chest radiograph repeat showed no changes from 03/06/[address] as it showed a left upper lobe infiltrate (not present on 03/03/2021 on admission CXR). Respiratory therapy reports that the patient will not benefit from suction as he is able to cough up sputum. -spoke with Dr. Duke about patient's worsening dyspnea who recommended the following: -Retrieve records of patient's last treatment, appointment, and radiation and what dose from the [facility] -If patient is still Lung Cancer stage 3C, start nebulized mucolytics and nebulized antibiotics -nebulized mucolytics started, will cease treatment if records, once obtained, reflect that patient has stage 4 lung cancer. -nebulized Tobramycin started, will cease treatment if records, once obtained, reflect that patient has stage 4 lung cancer. -may consider giving patient IV hydration to assist in coughing up sputum, giving 500mL NS at this time, 03/08/21 CHF. Echocardiogram done 03/03/2021, showed moderate pulmonary hypertension. Ejection fraction was 65-70%. Therefore, the bilateral lower leg edema is likely secondary to pulmonary hypertension resulting from increased intrathoracic pressure. Stop Lasix at this time, since patient needs hydration to cough up secr etions per Dr. Duke. Monitor I's and O's. Monitor daily weights Repeat BNP decreased to 520 (895 on admission). COPD exacerbation/pneumonia. Stopped Vancomycin today as pt's sputum grew Chlamydia pneumoniae and Mycoplasma pneumoniae. Both of these are covered by Levaquin which patient is receiving at this time. Sputum culture resulted showing pseudomonas aeruginosa resistant to Zosyn. Patient's Procalcitonin on 03/03/2021 was 14.93. Repeat Procalcitonin was 3.8, 03/05/2021 AM, and 1.05 on 03/07/21. Leukocytosis, decreased to 11.4 from 19.2 yesterday. Continued to administer DuoNeb treatment. Encourage incentive spirometry and Acapella. Chest PT ordered as well due to increased secretions. O2 therapy should be targeted to oxygen saturation to be kept above 90%. -Chest CT 03/06/2021: showed fluid in the lungs and new areas of smaller patchy infiltrates were seen in the upper lobes. Rule out PE. CT angiogram done without any evidence of pulmonary embolism. History of lung cancer. #Possible dysphagia. Speech therapy evaluated patient and recommended NPO now. #Borderline QTc prolongation. Patient has been started on levofloxacin, which is known to prolong QT. Patient is being started back on remote telemetry, due to this. #Hypotension secondary to poor oral intake. Patient has evidence of pulmonary hypertension on echocardiogram. Therefore, IV hydration should be gentle. Consider 500 mL bolus if patient remains hypotensive during the night. #Vomiting. Patient vomited once on 03/06/21. Upon follow-up with patient, he denied feeling nauseous. 2 mg, IV Zofran was ordered due to patient's borderline QT prolongation Abdominal KUB x-ray was ordered, and showed no signs of obstruction. #Thrombocytopenia. Patient's platelets went down from 282 on admission to 113 today. Discontinue Lovenox, TEDS and sequentials will be used for DVT prophylaxis now, as Lovenox may have induced thrombocytopenia. Heparin-induced thrombocytopenia antibodies test ordered. Follow-up on results. Continue to monitor CBC, a.m. CBC has been ordered for monitoring. #Hypokalemia with hypomagnesemia Magnesium level within normal limits at this time. Repeat BMP tomorrow morning to reassess potassium repletion state. Repeat magnesium ordered for a.m. to assess for possible repletion of magnesium #Lactic acidosis. This is likely type B lactic acidosis, mixed with some infectious component. Patient has an increased tumor burden, therefore, lactic acid is likely secondary to malignancy. Discontinuing lactic acid trend due to pro-calcitonin, improving on antibiotics. #Pericardial effusion. Pericardial effusion is noncompressive and small at this time. No intervention at this time as this effusion is likely secondary to patient's history of lung cancer. #Underweight, BMI of 18.1 kg/m Complicates care. Likely causing patient's fatigue, although patient has multiple other comorbidities as listed above. patient has been placed on COPD diet. Nutrition has been consulted. Ensure has been ordered to incorporate into patient's diet. -for now patient is NPO. DVT prophylaxis ordered: TEDS and sequentials. DISPOSITION: Discharge not considered since pt is possibly on the route to sepsis without intravenous antibiotics. VS, I&O, 24H, Fishbone Vital Signs/I&O Vital Signs Date Time Temp Pulse Resp B/P (MAP) Pulse Ox O2 Delivery O2 Flow Rate FiO2 03/08/21 07:19 97.3 86 20 102/58 (73) 98 HVNI-Vapotherm 15.0 03/08/21 07:09 90 I&O- Last 24 Hours up to 6 AM 03/08/21 06:00 Intake Total 1975 ml Output Total 1305 ml Balance 670 ml Laboratory Data 24H LABS Laboratory Tests 2 03/07/21 11:48: Bedside Glucose (Misc Panel) 128H 03/07/21 12:57: Troponin I < 0.02, CR-Kct-P-Type Natriuretic Peptide 520H, Procalcitonin 1.05, Vancomycin Level Trough 13.1 03/07/21 17:01: Bedside Glucose (Misc Panel) 138H 03/07/21 20:41: Bedside Glucose (Misc Panel) 118H 03/08/21 03:50: Blood Gas Bicarbonate Standard 31.1H, Arterial Blood pH 7.396, Arterial Blood Partial Pressure CO2 55.5H, Arterial Blood Partial Pressure O2 148.4H, Arterial Blood Total CO2 35.0H, Arterial Blood HCO3 33.3H, Arterial Blood Base Excess 7.2H, Arterial Blood Oxygen Saturation 98.7 03/08/21 05:38: Neutrophils (%) (Auto) , Nucleated Red Blood Cells % (auto) 0.0, Neutrophils 80H, Band Neutrophils 6, Lymphocytes (Manual) 6L, Monocytes (Manual) 6H, Eosinophils (Manual) 1, Atypical Lymphocytes 1, Platelet Estimate NORMAL, Immature Platelet Fraction 6.7, Anion Gap 1L, Glomerular Filtration Rate > 60.0, Calcium Level 7.3L, Magnesium Level 1.8, Total Bilirubin 0.4, Aspartate Amino Transf (AST/SGOT) 10, Alanine Aminotransferase (ALT/SGPT) 11L, Alkaline Phosphatase 67, Total Protein 5.0L, Albumin 0.8L, Albumin/Globulin Ratio 0.2 CBC/BMP Laboratory Tests 03/08/21 05:38 Microbiology Microbiology 03/04/21 Blood Culture - Preliminary, Resulted No Growth after 72 hours. All specime... 03/03/21 Gram Stain - Final, Complete 03/03/21 Sputum Culture - Final, Complete Pseudomonas Aeruginosa 03/03/21 Blood Culture - Preliminary, Resulted No Growth after 72 hours. All specime... 03/03/21 Blood Culture - Preliminary, Resulted No Growth after 72 hours. All specime... 03/03/21 Respiratory Virus Panel (PCR) ([facility]) - Final, Complete GME ATTESTATION GME ATTESTATION My faculty preceptor for this patient encounter was physically present during the encounter and was fully available. All aspects of the patient interview, examination, medical decision making process, and medical care plan development were reviewed and approved by the faculty preceptor. The faculty preceptor is aware and concurs with the plan as stated in the body of this note and will attest to such by his/her cosignature. ATTENDING NOTE Attending Attestation: Patient independently seen and examined. I have discussed in detail with the resident the findings and plan of treatment as documented by the resident. I agree with their findings and treatment plan. Poor prognosis, worsening hypoxic respiratory failure in the setting of lung cancer. Code status discussed at length with patient, who decided for DNR/DNI. Pulm recs appreciated. I will continue to follow the patient during this hospital stay. Huseyin Nagy DO Mar 08, 2021 16:56 MARTI MCPHERSON MD Mar 09, 2021 06:48
[2021-03-08] MEDS ORDERED: NS 1,000 ML IV SCH (19:00)
[2021-03-09] VITALS (9 sets, daily range): BP systolic 99–105; BP diastolic 55–63; O2SAT 90–95
[2021-03-09] MEDS: guaiFENesin 200 MG TAB PO SCH ×6 (01:51→21:21)
[2021-03-09] MEDS: IPRATROPIUM 0.5MG/ALBUTEROL 2.5MG INH SOL UD 3ML (DUONEB) NEB SCH ×5 (03:40→19:42)
[2021-03-09 03:43] LABS: HEMATOCRIT 28.3 % (42.0-52.0); HEMOGLOBIN 9.1 g/dl (13.5-17.5); MEAN CORPUSCULAR HEMOGLOBIN 29.4 pg (27.0-33.0); MEAN CORPUSCULAR HGB CONC 32.2 g/dl (32.0-36.5); MEAN CORPUSCULAR VOLUME 91.6 fl (80.0-96.0); RED BLOOD COUNT 3.09 10^6/uL (4.30-6.10); WHITE BLOOD COUNT 7.8 10^3/uL (4.0-10.0)
[2021-03-09 04:04] LABS: BLOOD UREA NITROGEN 27 MG/DL (7-18); CALCIUM LEVEL 7.7 MG/DL (8.5-10.1); CARBON DIOXIDE LEVEL 37 MEQ/L (21-32); CHLORIDE LEVEL 105 MEQ/L (98-107); CREATININE FOR GFR 0.45 MG/DL (0.70-1.30); GLOMERULAR FILTRATION RATE > 60.0 (>56); GLUCOSE, FASTING 92 MG/DL (70-100); MAGNESIUM LEVEL 1.9 MG/DL (1.8-2.4); PHOSPHORUS LEVEL 3.2 MG/DL (2.5-4.9); SODIUM LEVEL 140 MEQ/L (136-145)
[2021-03-09 04:11] LABS: EOSINOPHILS 2 % (0-3); LYMPHOCYTES 3 % (16-44); MONOCYTES 4 % (0-5); NEUTROPHILS 88 % (28-66)
[2021-03-09 04:12] LABS: PLATELET CLUMPS SMALL AMT; PLATELET ESTIMATE NORMAL (NORMAL)
[2021-03-09 04:13] LABS: BURR CELLS 1+
[2021-03-09] MEDS: SLF 3 ML SYR IV SCH ×3 (05:58→21:21)
[2021-03-09] MEDS: LevoFLOXacin 750 MG TABLET PO SCH (06:00)
[2021-03-09] MEDS: TOBRAMYCIN INHAL 300 MG/5 ML SOLN INH SCH ×2 (07:09→20:10)
[2021-03-09] MEDS: ACETYLCYSTEINE 20% 4 ML VIAL (200MG/ML) INH SCH ×2 (07:09→19:42)
--- NOTE | 2021-03-09 13:37 | IPNPDOC ---
Text Note Date of Service The patient was seen on 03/09/21. NOTE Subjective: Patient seen and examined at bedside. She seems to be doing a little bit better today. He is able to speak clear still requiring significant supplemental oxygen. His cough seems to improved as well. . No acute overnight events reported. No other medical complaints. Objective: General; NAD, lying comfortably in bed, chronically ill appearing, cachectic HEENT: NC/AT, EOMI Lungs: coarse breath sounds throughout Heart: +S1S2, RRR Abd: soft, NT, +BS Ext: no edema Neuro: no gross focal deficits Psych: AAOx3 A/P: 55M with past medical history including lung carcinoma and COPD who presented to the hospital for cough and SOB, admitted for acute hypoxic respiratory failure. #Dyspnea, multifactorial. #COPD exacerbation #PNA due to pseudomonas #pulmonary HTN #Lung CA - weaned to 12L vapotherm today - nebulized treatments started yesterday - acetylcysteine, tobramycin - continue PO levaquin - procal trending down Echocardiogram done 03/03/2021, showed moderate pulmonary hypertension. - records pending from his oncologist #Possible dysphagia. follow as per speech therapy - recommended NPO now #Borderline QTc prolongation. - follow up ECG in am #Hypotension secondary to poor oral intake. Patient has evidence of pulmonary hypertension on echocardiogram. Therefore, IV hydration should be gentle. Consider 500 mL bolus if patient remains hypotensive during the night. #Vomiting. - resolved - likely contributed to his aspiration as above #Thrombocytopenia. - obtain EDTA free tomorrow - unable to assess today due to clumping #Hypokalemia with hypomagnesemia continue to monitor and replete as needed #Lactic acidosis. This is likely type B lactic acidosis, mixed with some infectious component. #Pericardial effusion. Pericardial effusion is noncompressive and small at this time. No intervention at this time as this effusion is likely secondary to patient's history of lung cancer. #Underweight, BMI of 18.1 kg/m Complicates care. Likely causing patient's fatigue, although patient has multiple other comorbidities as listed above. patient has been placed on COPD diet. Nutrition has been consulted. Ensure has been ordered to incorporate into patient's diet. -for now patient is NPO. DVT prophylaxis ordered: TEDS and sequentials. DISPOSITION: Pending clinical improvement. poor prognosis VS,Fishbone, I+O VS, Fishbone, I+O Laboratory Tests 03/09/21 03:21 Vital Signs Date Time Temp Pulse Resp B/P (MAP) Pulse Ox O2 Delivery O2 Flow Rate FiO2 03/09/21 11:35 98.1 90 20 101/55 (70) 90 HVNI-Vapotherm 12.0 60 I&O- Last 24 Hours up to 6 AM 03/09/21 06:00 Intake Total 1215 ml Output Total 900 ml Balance 315 ml MARTI MCPHERSON MD Mar 09, 2021 13:37
[2021-03-10] VITALS (10 sets, daily range): BP systolic 103–120; BP diastolic 55–73; O2SAT 89–99
[2021-03-10] MEDS: IPRATROPIUM 0.5MG/ALBUTEROL 2.5MG INH SOL UD 3ML (DUONEB) NEB SCH ×6 (00:43→19:26)
[2021-03-10] MEDS: SLF 3 ML SYR IV SCH ×3 (05:10→20:49)
[2021-03-10] MEDS: LevoFLOXacin 750 MG TABLET PO SCH (05:10)
[2021-03-10] MEDS: guaiFENesin 200 MG TAB PO SCH ×6 (05:10→20:49)
[2021-03-10 06:13] LABS: HEMATOCRIT 27.9 % (42.0-52.0); MEAN CORPUSCULAR HEMOGLOBIN 29.4 pg (27.0-33.0); MEAN CORPUSCULAR HGB CONC 32.3 g/dl (32.0-36.5); MEAN CORPUSCULAR VOLUME 91.2 fl (80.0-96.0); RED BLOOD COUNT 3.06 10^6/uL (4.30-6.10); WHITE BLOOD COUNT 8.4 10^3/uL (4.0-10.0)
[2021-03-10 06:42] LABS: ALBUMIN 0.8 GM/DL (3.2-5.2); ALT/SGPT 11 U/L (12-78); BILIRUBIN,TOTAL 0.4 MG/DL (0.2-1.0); BLOOD UREA NITROGEN 19 MG/DL (7-18); CALCIUM LEVEL 6.9 MG/DL (8.5-10.1); CARBON DIOXIDE LEVEL 33 MEQ/L (21-32); CHLORIDE LEVEL 103 MEQ/L (98-107); GLOMERULAR FILTRATION RATE > 60.0 (>56); GLUCOSE, FASTING 103 MG/DL (70-100); POTASSIUM SERUM 3.9 MEQ/L (3.5-5.1); SODIUM LEVEL 139 MEQ/L (136-145); TOTAL PROTEIN 5.3 GM/DL (6.4-8.2)
[2021-03-10 06:51] LABS: PLATELET COUNT, AUTOMATED 82 10^3/uL (150-450)
[2021-03-10 06:57] LABS: LYMPHOCYTES 3 % (16-44); MONOCYTES 5 % (0-5); NEUTROPHILS 92 % (28-66)
[2021-03-10 06:58] LABS: PLATELET CLUMPS SMALL AMT; PLATELET ESTIMATE DECREASED (NORMAL)
[2021-03-10] MEDS: ACETYLCYSTEINE 20% 4 ML VIAL (200MG/ML) INH SCH ×2 (07:21→19:26)
[2021-03-10] MEDS: TOBRAMYCIN INHAL 300 MG/5 ML SOLN INH SCH ×2 (08:36→23:44)
--- NOTE | 2021-03-10 10:09 | ECGEPIP ---
[facility] Test Date: 2021-03-10 Pat Name: ABEBE DE JESUS Department: Room: [place] [address] Gender: Male Tearoom Host/Hostess: rf : 1965 Requested By: MARTI Patrick Order Number: [id number] Reading MD: Laverne Carroll Measurements Intervals Bruner Rate: 89 P: 77 NC: 138 QRS: 55 QRSD: 86 T: 75 QT: 376 QTc: 457 Interpretive Statements Normal sinus rhythm. Also with second atrial focus with different P morphology and shorter NC Also seen 03/03/21. INCOMPLETE RIGHT BUNDLE BRANCH BLOCK as prior Electronically Signed on 03-10-2021 10:08:39 EDT by Laverne Carroll
--- NOTE | 2021-03-10 10:52 | IPNPDOC ---
Date Seen The patient was seen on 03/10/21. Progress Note SUBJECTIVE: Patient is on hospital day 7. Pt continues to require 15L via vapotherm and is saturating well at 90%. Patient denies fevers, chills, night sweats at this time. Pt reports feeling more short of breath. Patient reports that although he has decreased appetite. He was made NPO per speech therapy recommendations 03/07/21, but patient is able to tolerate drinking coffee and popsicles. Patient reports that he continues to cough up a light brown colored sputum at this time, but also reports that he feels like he is choking on the sputum he is trying to cough up. Pt reports using his Acapella and IS spirometry. Patient remained afebrile yesterday. Nursing staff reports that his blood pressures have improved, with systolic blood pressure in the high 110s- 120s now, his SBPs were previously running soft. OBJECTIVE PHYSICAL EXAMINATION: VITAL SIGNS: Please see below. GENERAL: Patient is sitting upright without back support in his bed with his legs off the edge of the bed, in mild acute distress. HEENT: No conjunctival erythema, no scleral icterus, lids normal. CARDIOVASCULAR: Distant heart sounds due to body habitus, normal S1, S2. RESPIRATORY: Moderate diffuse rhonchi appreciated, patient continues to have a cough, but is breathing comfortably without pursed lip breathing today. ABDOMINAL: Soft, nontender, nondistended, bowel sounds present. EXTREMITIES: +2 pitting edema pedal to patella, bilaterally, increased. NEUROLOGICAL: Good tone, patient able to sit upright, despite cachectic body habitus. PSYCHOLOGICAL: Alert and oriented 3, cooperative on examination. LABORATORY DATA, IMAGING STUDIES, MICROBIOLOGY: Please see below. Echocardiogram: 03/03/2021 1. Study is of fair technical quality, underlying sinus rhythm. 2. Normal LV size with preserved LV systolic function and probably also normal diastolic function. 3. No significant valvular disease. 4. Mildly elevated central venous pressure and likely moderate pulmonary hypertension. 5. Small noncompressive pericardial effusion. ASSESSMENT AND PLAN: This is a 55-year-old male with past medical history of lung carcinoma and COPD who presented to the hospital secondary to cough, and right-sided back pain. #Dyspnea, multifactorial. Worsening today, 03/08/2021: Chest radiograph repeat showed no changes from 03/06/[address] as it showed a left upper lobe infiltrate (not present on 03/03/2021 on admission CXR). Respiratory therapy reports that the patient will not benefit from suction as he is able to cough up sputum. -spoke with Dr. Duke about patient's worsening dyspnea who recommended the following: -Retrieve records of patient's last treatment, appointment, and radiation and what dose from the [facility], still pending. -If patient is still Lung Cancer stage 3C, start nebulized mucolytics and nebulized antibiotics -nebulized mucolytics started, will cease treatment if records, once obtained, reflect that patient has stage 4 lung cancer. -nebulized Tobramycin started, will cease treatment if records, once obtained, reflect that patient has stage 4 lung cancer. -may consider giving patient IV hydration to assist in coughing up sputum, giving 500mL NS at this time, 03/08/21 CHF. Echocardiogram done 03/03/2021, showed moderate pulmonary hypertension. Ejection fraction was 65-70%. Therefore, the bilateral lower leg edema is likely secondary to pulmonary hypertension resulting from increased intrathoracic pressure. Stop Lasix at this time, since patient needs hydration to cough up secretions per Dr. Duke. Monitor I's and O's. Monitor daily weights Repeat BNP decreased to 520 (895 on admission). COPD exacerbation/pneumonia. Stopped Vancomycin as pt's sputum grew Chlamydia pneumoniae and Mycoplasma p neumoniae. Both of these are covered by Levaquin which patient is receiving at this time. Sputum culture resulted showing pseudomonas aeruginosa resistant to Zosyn. Patient's Procalcitonin on 03/03/2021 was 14.93. Repeat Procalcitonin was 3.8, 03/05/2021 AM, and 1.05 on 03/07/21. Leukocytosis, decreased to 8.4 from 19.2 yesterday. Continued to administer DuoNeb treatment. Encourage incentive spirometry and Acapella. Chest PT ordered as well due to increased secretions. O2 therapy should be targeted to oxygen saturation to be kept above 90%. -Chest CT 03/06/2021: showed fluid in the lungs and new areas of smaller patchy infiltrates were seen in the upper lobes. Rule out PE. CT angiogram done without any evidence of pulmonary embolism. History of lung cancer. #Possible dysphagia. Speech therapy evaluated patient and recommended NPO. -Ordered re-evaluation speech therapy for this patient since he is tolerating popsicles and his oxygen saturation was up-titrated allowing him to take more comfortable breaths. #Borderline QTc prolongation. Patient has been started on levofloxacin, which is known to prolong QT. Patient is being started back on remote telemetry, due to this. -Remote telemetry leads were off, nursing staff was asked to readjust. -Morning EKG, 03/10/21 showed QTC of 457, slightly prolonged, same as on admission. #Hypotension secondary to poor oral intake. Patient has evidence of pulmonary hypertension on echocardiogram. Therefore, IV hydration should be gentle. #Vomiting. Patient vomited once on 03/06/21. Upon follow-up with patient, he denied feeling nauseous. 2 mg, IV Zofran was ordered due to patient's borderline QT prolongation Abdominal KUB x-ray was ordered, and showed no signs of obstruction. #Thrombocytopenia. Patient's platelets went down from 282,000 on admission and continues to decrease to 82,000 today. Discontinue Lovenox, TEDS and sequentials will be used for DVT prophylaxis now, as Lovenox may have induced thrombocytopenia. Heparin-induced thrombocytopenia antibodies, 0.112, within normal limits -Peripheral smear ordered. Continue to monitor CBC daily #Hypokalemia with hypomagnesemia Magnesium level within normal limits at this time. Repeat BMP tomorrow morning to reassess potassium repletion state. Repeat magnesium ordered for a.m. to assess for possible repletion of magnesium #Lactic acidosis. This is likely type B lactic acidosis, mixed with some infectious component. Patient has an increased tumor burden, therefore, lactic acid is likely secondary to malignancy. Discontinuing lactic acid trend due to pro-calcitonin, improving on antibiotics. #Pericardial effusion. Pericardial effusion is noncompressive and small at this time. No intervention at this time as this effusion is likely secondary to patient's history of lung cancer. #Underweight, BMI of 18.1 kg/m Complicates care. Likely causing patient's fatigue, although patient has multiple other comorbidities as listed above. patient has been placed on COPD diet. Nutrition has been consulted. Ensure has been ordered to incorporate into patient's diet. -for now patient is NPO, but being re-evaluated by speech therapy today. DVT prophylaxis ordered: TEDS and sequentials. DISPOSITION: Discharge not considered since pt is possibly on the route to sepsis without intravenous antibiotics. VS, I&O, 24H, Fishbone Vital Signs/I&O Vital Signs Date Time Temp Pulse Resp B/P (MAP) Pulse Ox O2 Delivery O2 Flow Rate FiO2 03/10/21 08:00 98.3 78 22 110/62 (78) 94 03/10/21 08:00 12.0 60 03/10/21 07:24 HVNI-Vapotherm I&O- Last 24 Hours up to 6 AM 03/10/21 06:00 Intake Total 1290 ml Output Total 700 ml Balance 590 ml Laboratory Data 24H LABS Laboratory Tests 2 03/10/21 05:44: Neutrophils (%) (Auto) , Nucleated Red Blood Cells % (auto) 0.0, Neutrophils 92H, Lymphocytes (Manual) 3L, Monocytes (Manual) 5, Platelet Estimate DECREASED, Clumped Platelets SMALL AMT, Immature Platelet Fraction 6.6, Anion Gap 3L, Glomerular Filtration Rate > 60.0, Calcium Level 6.9L, Total Bilirubin 0.4, Aspartate Amino Transf (AST/SGOT) 12, Alanine Aminotransferase (ALT/SGPT) 11L, Alkaline Phosphatase 64, Total Protein 5.3L, Albumin 0.8L, Albumin/Globulin Ratio 0.2 CBC/BMP Laboratory Tests 03/10/21 05:44 Microbiology Microbiology 03/04/21 Blood Culture - Final, Complete NO GROWTH AFTER 5 DAYS 03/03/21 Gram Stain - Final, Complete 03/03/21 Sputum Culture - Final, Complete Pseudomonas Aeruginosa 03/03/21 Blood Culture - Final, Complete NO GROWTH AFTER 5 DAYS 03/03/21 Blood Culture - Final, Complete NO GROWTH AFTER 5 DAYS 03/03/21 Respiratory Virus Panel (PCR) (TED) - Final, Complete GME ATTESTATION GME ATTESTATION My faculty preceptor for this patient encounter was physically present during the encounter and was fully available. All aspects of the patient interview, examination, medical decision making process, and medical care plan development were reviewed and approved by the faculty preceptor. The faculty preceptor is aware and concurs with the plan as stated in the body of this note and will attest to such by his/her cosignature. ATTENDING NOTE Attending Attestation: Patient independently seen and examined. I have discussed in detail with the resident the findings and plan of treatment as documented by the resident. I agree with their findings and treatment plan. Very poor prognosis, discussed with pulm and CTS, recs appreciated. I will continue to follow the patient during this hospital stay. Huseyin Nagy DO Mar 10, 2021 10:52 MARTI MCPHERSON MD Mar 24, 2021 14:30
[2021-03-11] VITALS: BP 123/78
[2021-03-11] MEDS: IPRATROPIUM 0.5MG/ALBUTEROL 2.5MG INH SOL UD 3ML (DUONEB) NEB SCH ×3 (00:04→07:48)
[2021-03-11] MEDS: guaiFENesin 200 MG TAB PO SCH ×3 (01:10→07:48)
[2021-03-11 04:00] VITALS: BP 128/76
[2021-03-11] MEDS: SLF 3 ML SYR IV SCH (05:25)
[2021-03-11] MEDS: LevoFLOXacin 750 MG TABLET PO SCH (05:25)
[2021-03-11] MEDS ORDERED: MORPHINE 2 MG/ML 1ML VIAL (J2270) As Ordered ONE (06:55)
[2021-03-11] MEDS ORDERED: LORazepam 2 MG/ML VIAL As Ordered ONE (06:57)
--- NOTE | 2021-03-11 07:03 | IPNPDOC ---
Text Note Date of Service The patient was seen on 03/11/21. NOTE time of service 655am I was informed by the patient's RN that he became altered within the last 30 min and was having agonal breathing. At the time of my assessment he was altered, on max vapotherm. @700AM - HR 96 / T 91 / RR 28 / O2 91% / BP 107/55 / glucose 05 #Acute respiratory failure I called Jing Hollis (contact lens polisher) to obtain permission to transition to METALLURGICAL ENGINEERING TEACHER but there was no response. The patient appears to be close to passing away; out of compassion I will give order 1 mg ativan and 2 mg of morphine. VS,Fishbone, I+O VS, Fishbone, I+O Vital Signs Date Time Temp Pulse Resp B/P (MAP) Pulse Ox O2 Delivery O2 Flow Rate FiO2 03/11/21 04:00 96.8 91 16 128/76 (93) 93 HVNI-Vapotherm 40.0 100 I&O- Last 24 Hours up to 6 AM 03/11/21 06:00 Intake Total 470 ml Output Total 1240 ml Balance -770 ml MIKE ROBERTS MD Mar 11, 2021 07:03
[2021-03-11] MEDS ORDERED: LORazepam 2 MG/ML VIAL IV STA (07:08)
[2021-03-11] MEDS ORDERED: MORPHINE 2 MG/ML 1ML VIAL (J2270) IV ONE (07:10)
[2021-03-11] MEDS ORDERED: MORPHINE 10MG/0.5ML ORAL CONCENTRATE SOLUTION U/D SL PRN (07:35)
[2021-03-11] MEDS ORDERED: SCOPOLAMINE 1MG TRANSDERMAL PATCH TOP PRN (07:35)
[2021-03-11] MEDS ORDERED: LORazepam 1 MG TAB PO PRN (07:35)
[2021-03-11] MEDS: ACETYLCYSTEINE 20% 4 ML VIAL (200MG/ML) INH SCH (07:48)
[2021-03-11] MEDS: TOBRAMYCIN INHAL 300 MG/5 ML SOLN INH SCH (07:48)
--- NOTE | 2021-03-11 15:00 | DS.PDOC ---
Discharge Summary General Date of Admission Mar 03, 2021 at 08:44 Date of Discharge 03/11/2021 Attending Physician: KENTRELL RANDHAWA MD Discharge Summary PROCEDURES PERFORMED DURING STAY: None. ADMITTING DIAGNOSES / DISCHARGE DIAGNOSES: Dyspnea 2/2 multifactorial underlying disease: CHF, COPD, history of lung cancer Sepsis with pneumonia from Pseudomonas; present on admission Acute hypoxic respiratory failure. Severe protein calorie malnutrition Pseudomonal pneumonia. Lung cancer, stage IIIc, last known, possibly stage IV. Severe malnutrition Borderline QTC prolongation Pericardial effusion Lactic acidosis COMPLICATIONS/CHIEF COMPLAINT: Lung Cancer, Sob. HISTORY OF PRESENT ILLNESS: Patient is a 55-year-old male with past medical history of lung cancer, and COPD who presents with shortness of breath, cough and right back pain. The patient is a poor historian and unintelligible speech at times. He is able to express that he has had cough for the past week without any productive sputum. He states that he has been trying to cough something up but cannot. He reports that his right-sided back pain is skilled at a 5 out of 10. He describes it as a sore aching pain that is alleviated by a medication of 500 mg. The patient states that he was seen in [place], [place] for his lung cancer, where states that he was told that his lung cancer was in remission. He reports that he has had both radiation and chemotherapy for this. He had a report from his chemotherapy therapy even though he does not receive at this time. Chest radiograph and CT angiogram were done in the ED, which both showed significant signs of mass-like densities. CT angiogram did not show signs of pu lmonary embolism, however, he did show significant emphysema of the long and the possibility of intraparenchymal abscesses with the possibility of fistulous communication to the bronchial tree. HOSPITAL COURSE: Dyspnea, multifactorial. Worsened on 03/08/2021: Chest radiograph repeat showed no changes from 03/06/[address] as it showed a left upper lobe infiltrate (not present on 03/03/2021 on admission CXR). Respiratory therapy reports that the patient will not benefit from suction as he is able to cough up sputum. -spoke with Dr. Duke about patient's worsening dyspnea who recommended the following: -Attempted to retrieve records of patient's last treatment, appointment, and radiation and what dose from the [facility], still pending. -It was decided that if patient is still Lung Cancer stage 3C, start nebulized mucolytics and nebulized antibiotics -On 03/08/2021, nebulized mucolytics and nebulized tobramycin was started, it was decided that the treatment would be stopped if records, once obtained, reflected that the patient has stage 4 lung cancer. CHF. Echocardiogram done 03/03/2021, showed moderate pulmonary hypertension. Ejection fraction was 65-70%. Therefore, the bilateral lower leg edema is likely secondary to pulmonary hypertension resulting from increased intrathoracic pressure. Stopped Lasix. On 03/08/2021, since patient needed hydration to cough up secretions per Dr. Duke. Intake and outputs and weight was monitored daily. COPD exacerbation/pneumonia. Stopped Vancomycin on 03/06/2021 as pt's sputum grew Chlamydia pneumoniae and Mycoplasma pneumoniae. Both of these are covered by Levaquin which patient is receiving at this time. Sputum culture resulted showing pseudomonas aeruginosa resistant to Zosyn. Patient's Procalcitonin on 03/03/2021 was 14.93. Repeat Procalcitonin was 3.8, 03/05/2021 AM, and 1.05 on 03/07/21. Leukocytosis, decreased to 8.4 from 19.2. Continued to administer DuoNeb treatment. Encouraged incentive spirometry and Acapella. Chest PT ordered as well due to increased secretions. O2 therapy was targeted to oxygen saturation to be kept above 90%. -Chest CT 03/06/2021: showed fluid in the lungs and new areas of smaller patchy infiltrates were seen in the upper lobes. Ruled out PE. CT angiogram done without any evidence of pulmonary embolism. History of lung cancer. Possible dysphagia. Speech therapy evaluated patient and recommended NPO. -Ordered re-evaluation speech therapy for this patient since he is tolerating popsicles and his oxygen saturation was up-titrated allowing him to take more comfortable breaths. Patient was able to tolerate dinner on 03/10/2021. Borderline QTc prolongation. Patient had been started on levofloxacin, which is known to prolong QT, given patient's borderline long QTC on admission, another EKG was ordered morning of 03/10/2021 which showed no significant increase prolongation with a QTC of 457. -Morning EKG, 03/10/21 showed QTC of 457, borderline prolonged, same as on admission. Hypotension secondary to poor oral intake. Patient has evidence of pulmonary hypertension on echocardiogram. Therefore, IV hydration should be gentle. Vomiting. Patient vomited once on 03/06/21, which was later well managed on 2 mg, IV Zofran was ordered due to patient's borderline QT prolongation Abdominal KUB x-ray was ordered, and showed no signs of obstruction. Thrombocytopenia. Patient's platelets went down from 282,000 on admission and continues to decrease to 82,000 on 03/10/2021. Discontinue Lovenox, TEDS and sequentials will be used for DVT prophylaxis now, as Lovenox may have induced thrombocytopenia. Heparin-induced thrombocytopenia antibodies, 0.112, within normal limits -Peripheral smear did not show any platelet abnormalities. CBC was monitored daily Hypokalemia with hypomagnesemia Magnesium level within normal limits at this time. Repeat BMP tomorrow morning to reassess potassium repletion state. Repeat magnesium ordered for a.m. to assess for possible repletion of magnesium Lactic acidosis. This was likely type B lactic acidosis, mixed with some infectious component. Patient has an increased tumor burden, therefore, continued lactic acid levels, after antibiotic administration was likely secondary to malignancy. Discontinuing lactic acid trend due to pro-calcitonin, improving on antibiotics. Pericardial effusion. Pericardial effusion is noncompressive and small at this time. There was no intervention at this time as this effusion is likely secondary to patient's history of lung cancer. Underweight, BMI of 18.1 kg/m Complicated care and was likely causing patient's fatigue, although patient has multiple other comorbidities as listed above. patient had been placed on COPD diet. Nutrition has been consulted. Ensure has been ordered to incorporate into patient's diet. -Patient was briefly NPO, but upon re-evaluation by speech therapy on 03/10/2021, he was able to have dinner. On 03/11/2021, approximately 655 patient's RN informed hospitalist night team that the patient had became altered within the last 30 minutes and had began agonal breathing. Jing Hollis, the patient's contact officer provided by the patient on admission was contacted without answer. Since she did not answer and patient was DNR/DNI, 1 mg of Ativan and 2 mg of morphine were administered. Shortly thereafter, hospitalist day team, was contacted. Mireille Aguirre, patient's sister, was contacted multiple times without answer. Finally, when she was able to be contacted, the patient was placed on HISTORICAL INTERPRETER measures. Orders were placed for patient to be repositioned every 2 hours, urinary condom catheter to be placed, patient to be nothing by mouth, scopolamine patch to be administered every 3 days as needed, morphine 2 mg every 2 hours as needed for pain and comfort, 1 mg by mouth every 2 hours as needed for pain and comfort. Oxygen therapy was continued. The patient's time of was 808. DISCHARGE MEDICATIONS: Please see below. ALLERGIES: Please see below. PHYSICAL EXAMINATION ON DISCHARGE: VITAL SIGNS: Please see below. GENERAL: Patient is not oriented, is lying back in the bed, agonal breathing on 100% FiO2 40 L Vapotherm. HEENT: Normocephalic, atraumatic, pupils not reactive to light, extraocular motion not intact CARDIOVASCULAR EXAMINATION: Very soft very difficult to auscultate S1, S2 RESPIRATORY EXAMINATION: Diminished breath sounds ABDOMINAL EXAMINATION:, Soft, non-tender, nondistended EXTREMITIES: Edema present +2 pedal to patella SKIN: Cool and clammy NEUROLOGICAL EXAMINATION: Patient's eyes were not visiting despite moving head side to side, patient did not respond to painful stimuli, patient did not have a gag reflex upon suctioning LABORATORY DATA: Please see below. IMAGING: Chest x-ray03/03/2021 1. Large right upper field masslike density with internal lucencies which could represent necrosis or aerated lung tissue in addition to extensive infiltrates in the inferior half of the right lung field. Findings could be secondary to large lung mass with lymphangitic spread of tumor or super infection. Comparison to old studies is needed. If clinically indicated CT of the chest may be obtained for further evaluation. 2. Right-sided chest port with its tip in the distal SVC. CT [id number]/07/[address] evidence of pulmonary embolism or right heart strain. 2. Extensive right lung disease as described above most likely representing a large poorly defined mass occupying the upper half of the right lung field with internal necrosis and or abscesses with the possibilities of fistulous communication to the bronchial tree in addition to extensive consolidations infiltrate and irregular septal thickening in the inferior half of the right lung field which could represent superimposed infection with consolidations and or lymphangitic spread of tumor. 3. Mediastinal adenopathy. 4. Small to moderate pericardial effusion. 5. Right-sided chest port with its tip at the cavoatrial junction. Chest CT03/07/2021 1. Advanced COPD/emphysematous changes with significant consolidations and fluid involving the right hemithorax essentially unchanged. 2. New areas of similar but smaller patchy infiltrates and fluid now identified involving the left upper lobe. Abdominal x-ray03/07/2021 1. Nonspecific bowel gas pattern. 2. Contrast within the urinary tract collecting system demonstrating bilateral bladder diverticula. 3. Suspected right lower lobe infiltrate. Chest x-ray03/07/2021 Extensive consolidation right upper lobe, volume loss and consolidation right upper lobe, new infiltrate left upper lobe compared with the comparison chest x-ray of March 03, 2021 although the left upper lobe infiltrate is visible on March 06, 2021 CT study. DISPOSITION: 20 . Vital Signs/I&Os Vital Signs Date Time Temp Pulse Resp B/P (MAP) Pulse Ox O2 Delivery O2 Flow Rate FiO2 03/11/21 07:15 10 Non-Rebreather 03/11/21 04:00 96.8 91 128/76 (93) 93 40.0 100 I&O- Last 24 Hours up to 6 AM 03/11/21 06:00 Intake Total 470 ml Output Total 1240 ml Balance -770 ml Laboratory Data Labs 24H Laboratory Tests 2 03/11/21 07:01: Bedside Glucose (Misc Panel) 105 FSBS Laboratory Tests Test 03/11/21 07:01 Range/Units Bedside Glucose (Misc Panel) 105 70-105 MG/DL Microbiology Microbiology 03/04/21 Blood Culture - Final, Complete NO GROWTH AFTER 5 DAYS 03/03/21 Gram Stain - Final, Complete 03/03/21 Sputum Culture - Final, Complete Pseudomonas Aeruginosa 03/03/21 Blood Culture - Final, Complete NO GROWTH AFTER 5 DAYS 03/03/21 Blood Culture - Final, Complete NO GROWTH AFTER 5 DAYS 03/03/21 Respiratory Virus Panel (PCR) (TED) - Final, Complete Discharge Medications Scheduled Cefdinir (Cefdinir) 300 Mg Capsule, 300 MG PO BID, (Reported) Scheduled PRN Albuterol Sulf (Albuterol Sulfate) 2.5 Mg/3 Ml Vial.neb, 1 VIAL PO Q4H PRN for SHORTNESS OF BREATH, (Reported) Allergies Coded Allergies: acetaminophen (Verified Adverse Reaction, Intermediate, GAS CHEST PAIN, 03/03/21) codeine (Verified Adverse Reaction, Intermediate, GAS CHEST PAIN, 03/03/21) GME ATTESTATION GME ATTESTATION My faculty preceptor for this patient encounter was physically present during the encounter and was fully available. All aspects of the patient interview, examination, medical decision making process, and medical care plan development were reviewed and approved by the faculty preceptor. The faculty preceptor is aware and concurs with the plan as stated in the body of this note and will attest to such by his/her cosignature. ATTENDING NOTE I, Kentrell Randhawa, have independently examined this patient and performed my own physical exam, as well as reviewed the documentation and edited where necessary. I have discussed in detail with the resident / student the findings and plan of treatment as documented by the resident / student and edited their note. I agree with their findings and treatment plan and have edited their documentation. I will continue to follow the patient during this hospital stay. Time spent on discharge 20 minutes Huseyin Nagy DO Mar 11, 2021 15:00 KENTRELL RANDHAWA MD Mar 11, 2021 15:06
== END 2021-03-11 10:33 | disposition expired | DRG 871 ==
LOC: M ED 02:36 → EEVIPCON 08:44 → M ED INP 08:44 → ENRESERV 09:41 → M PCU 11:27 → M MSPAV 03-04 12:45 → M PCU 03-08 03:56
PROVIDERS: ADMIT Internal Medicine; ATTEND Internal Medicine
DX: A41.9 Sepsis, unspecified organism (principal); J96.01 Acute respiratory failure with hypoxia; J15.1 Pneumonia due to Pseudomonas; E43 Unspecified severe protein-calorie malnutrition; J44.1 Chronic obstructive pulmonary disease with (acute) exacerbation; Z68.1 Body mass index [BMI] 19.9 or less, adult; C34.11 Malignant neoplasm of upper lobe, right bronchus or lung; J90 Pleural effusion, not elsewhere classified; E87.2 Acidosis; J44.0 Chronic obstructive pulmonary disease with (acute) lower respiratory infection; Z66 Do not resuscitate; Z92.3 Personal history of irradiation; Z92.21 Personal history of antineoplastic chemotherapy; Z85.51 Personal history of malignant neoplasm of bladder; Z87.891 Personal history of nicotine dependence; R63.6 Underweight; I27.20 Pulmonary hypertension, unspecified; R60.0 Localized edema; D72.829 Elevated white blood cell count, unspecified; Z20.822 Contact with and (suspected) exposure to COVID-19; Z79.899 Other long term (current) drug therapy; Z88.5 Allergy status to narcotic agent; Z88.6 Allergy status to analgesic agent; E87.6 Hypokalemia; E83.42 Hypomagnesemia; D69.6 Thrombocytopenia, unspecified; Z51.5 Encounter for palliative care